=== PATIENT | female | born 1980 | race Caucasian/White ===

== ENCOUNTER 2016-08-23 09:06 | Emergency (ER) | payer OTHER ==
--- NOTE | 2016-08-23 10:24 | DIAGNOSTIC IMAGING REPORT ---
PROCEDURE: XR CHEST 1 VIEW INDICATION: SHORTNESS OF BREATH TECHNIQUE: Portable AP view 09:54 a.m. COMPARISON: None. FINDINGS: Lungs are clear. Heart and mediastinum are normal. Thorax is normal. IMPRESSION: 1. Negative chest.
--- NOTE | 2016-08-23 13:11 | ED ORDER SUMMARY ---
..... Patient: MATTI GLEZ OrderSheet [facility] VisitID: [id number] [place] [address] 36y, F Registration Date/Time: 08/23/2016 ORDER SHEET Weight: 150.5 kg (stated) Allergies: Compazine GENERAL ORDERS: Chest 1V Urgent (09:45 08/23/2016 Alicia Johnson) (Ack 9:46 TBergley) (9:55 TBergley) Culture, Strep Screen Urgent (09:45 08/23/2016 Alicia Johnson) (Ack 9:46 TBergley) (10:27 JSimbeck R.N.) CBC w Diff Urgent (:08/23/2016 Alicia Johnson) (Ack 9:46 TBergley) (10:21 JSimbeck R.N.) CMP Urgent (09:08/23/2016 Alicia Johnson) (Ack 9:46 TBergley) (10:21 JSimbeck R.N.) UA-Culture if indicated Urgent (:45 08/23/2016 Alicia Johnson) (Ack 9:46 TBergley) (12:37 JSimbeck R.N.) Urine Urgent (09:45 08/23/2016 Alicia Johnson) (Ack 9:46 TBergley) (12:37 JSimbeck R.N.) Monoscreen Urgent (09:45 08/23/2016 Alicia Johnson) (Ack 9:46 TBergley) (10:21 JSimbeck R.N.) Rapid Influenza Screen (Nasal Pharyngeal) (...) Urgent (11:42 08/23/2016 Alicia Johnson) (Ack 11:45 TBergley) (12:37 JSimbeck R.N.) MEDICATION ORDERS: IV FLUIDS: IV NS : initial bolus none -, then 1000 mL/hr for X1 (NOW) (09:44 08/23/2016 Alicia Johnson) (10:25 JSimbeck R.N.) Toradol IV 30 mg (NOW) (09:45 08/23/2016 Alicia Johnson) (10:25 Demarcus Valadez) Zofran IV 4 mg (NOW) (09:46 08/23/2016 Alicia Johnson) (10:25 Demarcus Valadez) Reglan IV 10 mg (NOW) (11:12 08/23/2016 Alicia Johnson) (11:28 Demarcus Valadez) ORDER SHEET NOTES: [Electronically signed by Yuan Miller Dr. (22:06 08/23/2016)] [Electronically signed by Bernabe Broussard R.N. (07:41 08/24/2016)] [Electronically locked/signed by Bernabe Broussard R.N. (07:41 08/24/2016)]
--- NOTE | 2016-08-23 13:11 | ED ORDER SUMMARY ---
..... Patient: MATTI GLEZ OrderSheet [facility] VisitID: [id number] [place] [address] 36y, F Registration Date/Time: 08/23/2016 ORDER SHEET Weight: 150.5 kg (stated) Allergies: Compazine GENERAL ORDERS: Chest 1V Urgent (09:45 08/23/2016 Alicia Johnson) (Ack 9:46 TBergley) (9:55 TBergley) Culture, Strep Screen Urgent (09:45 08/23/2016 Alicia Johnson) (Ack 9:46 TBergley) (10:27 JSimbeck R.N.) CBC w Diff Urgent (:08/23/2016 Alicia Johnson) (Ack 9:46 TBergley) (10:21 JSimbeck R.N.) CMP Urgent (09:08/23/2016 Alicia Johnson) (Ack 9:46 TBergley) (10:21 JSimbeck R.N.) UA-Culture if indicated Urgent (:45 08/23/2016 Alicia Johnson) (Ack 9:46 TBergley) (12:37 JSimbeck R.N.) Urine Urgent (09:45 08/23/2016 Alicia Johnson) (Ack 9:46 TBergley) (12:37 JSimbeck R.N.) Monoscreen Urgent (09:45 08/23/2016 Alicia Johnson) (Ack 9:46 TBergley) (10:21 JSimbeck R.N.) Rapid Influenza Screen (Nasal Pharyngeal) (...) Urgent (11:42 08/23/2016 Alicia Johnson) (Ack 11:45 TBergley) (12:37 JSimbeck R.N.) MEDICATION ORDERS: IV FLUIDS: IV NS : initial bolus none -, then 1000 mL/hr for X1 (NOW) (09:44 08/23/2016 Alicia Johnson) (10:25 JSimbeck R.N.) Toradol IV 30 mg (NOW) (09:45 08/23/2016 Alicia Johnson) (10:25 Demarcus Valadez) Zofran IV 4 mg (NOW) (09:46 08/23/2016 Alicia Johnson) (10:25 Demarcus Valadez) Reglan IV 10 mg (NOW) (11:12 08/23/2016 Alicia Johnson) (11:28 Demarcus Valadez) ORDER SHEET NOTES: [Electronically signed by Yuan Miller Dr. (22:06 08/23/2016)] [Electronically signed by Bernabe Broussard R.N. (07:41 08/24/2016)] [Electronically locked/signed by Bernabe Broussard R.N. (07:41 08/24/2016)]
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
--- NOTE | 2016-08-24 07:41 | ED MAR SUMMARY ---
..... Medication Administration Record [facility] [address] [place] [address] Patient: MATTI GLEZ Visit ID: [id number] 36y, F Weight: 150.5 kg Height/Length: 66 in BMI: 53.6 ALLERGIES: Compazine Start 10:17 08/23/2016 Bernabe Broussard R.N., Stop 13:33 08/23/2016 Alexa Lozano R.N. Medication Administered: IV NS (SALINE), Dose: IV Fluids over 1 hour(s), Rate: 1000 mL/hr, Dispensed: 1000 mL bag, Site: #1 left hand. Medication Ordered: IV NS : initial bolus none -, then 1000 mL/hr for X1 (NOW). Given 10:17 08/23/2016 Bernabe Broussard R.N. Medication Administered: ZOFRAN [IVP] (ONDANSETRON HCL), Dose: 4 mg IVP over 1 minute(s), Site: #1 left hand. Medication Ordered: Zofran IV 4 mg (NOW). Given 10:18 08/23/2016 Bernabe Broussard R.N. Medication Administered: TORADOL [IVP], Dose: 30 mg IVP over 1 minute(s), Site: #1 left hand. Medication Ordered: Toradol IV 30 mg (NOW). Given 11:24 08/23/2016 Bernabe Broussard R.N. Medication Administered: REGLAN [IVP] (METOCLOPRAMIDE HCL), Dose: 10 mg IVP over 2 minute(s), Site: #1 left hand. Medication Ordered: Reglan IV 10 mg (NOW).
--- NOTE | 2016-08-24 07:41 | ED MED RECONCILIATION SUMMARY ---
Patient: MATTI GLEZ Medication Reconciliation Report [facility] VisitID: [id number] [address] [place] [address] 36y, F Registration Date/Time: 08/23/2016 Weight: 150.5 kg Height/Length: 66 in. BMI: 53.6 ALLERGIES: Compazine The patient's Home Medications are listed below: CONTINUE TAKING THE FOLLOWING MEDICATIONS: Lantus Subcutaneous, unsure of dose Protonix Oral TraZODone HCl Oral The source(s) of the original Home Medication information: Not obtained. The following Medications were given to the patient in the Emergency Department: IV NS IV Fluids bolus 0, then 1000 mL/hr, administered: 08/23/2016 10:17:00 AM Zofran [IVP] IVP 4 mg, administered: 08/23/2016 10:17:00 AM Toradol [IVP] IVP 30 mg, administered: 08/23/2016 10:18:00 AM Reglan [IVP] IVP 10 mg, administered: 08/23/2016 11:24:00 AM The following Medications were prescribed to the patient: Zofran (orally disintegrating tablets) 4 mg: take 1 orally every 6 hours as needed for nausea and vomiting. Dispense ten (10). No refill. Substitution is permissible. -- Yuan Miller Dr.
--- NOTE | 2016-08-24 07:41 | ED MAR SUMMARY ---
..... Medication Administration Record [facility] [address] [place] [address] Patient: MATTI GLEZ Visit ID: [id number] 36y, F Weight: 150.5 kg Height/Length: 66 in BMI: 53.6 ALLERGIES: Compazine Start 10:17 08/23/2016 Bernabe Broussard R.N., Stop 13:33 08/23/2016 Alexa Lozano R.N. Medication Administered: IV NS (SALINE), Dose: IV Fluids over 1 hour(s), Rate: 1000 mL/hr, Dispensed: 1000 mL bag, Site: #1 left hand. Medication Ordered: IV NS : initial bolus none -, then 1000 mL/hr for X1 (NOW). Given 10:17 08/23/2016 Bernabe Broussard R.N. Medication Administered: ZOFRAN [IVP] (ONDANSETRON HCL), Dose: 4 mg IVP over 1 minute(s), Site: #1 left hand. Medication Ordered: Zofran IV 4 mg (NOW). Given 10:18 08/23/2016 Bernabe Broussard R.N. Medication Administered: TORADOL [IVP], Dose: 30 mg IVP over 1 minute(s), Site: #1 left hand. Medication Ordered: Toradol IV 30 mg (NOW). Given 11:24 08/23/2016 Bernabe Broussard R.N. Medication Administered: REGLAN [IVP] (METOCLOPRAMIDE HCL), Dose: 10 mg IVP over 2 minute(s), Site: #1 left hand. Medication Ordered: Reglan IV 10 mg (NOW).
--- NOTE | 2016-08-24 07:41 | ED DISCHARGE INSTRUCTIONS ---
Patient: MATTI GLEZ General Instructions [facility] VisitID: [id number] [place] [address] 36y, F Registration Date/Time: 08/23/2016 Acute viral syndrome INSTRUCTIONS Alternate Tylenol (Acetaminophen) or Motrin (Ibuprofen) for fever. Take according to label instructions. Drink plenty of fluids. Your Current Medications: CONTINUE TAKING THE FOLLOWING MEDICATIONS: Lantus Subcutaneous : unsure of dose. Protonix Oral. TraZODone HCl Oral. Prescription Medications: Zofran (orally disintegrating tablets) 4 mg: take 1 orally every 6 hours as needed for nausea and vomiting. Dispense ten (10). No refill. Substitution is permissible. Follow-up: Follow up with your doctor in about four days if not better. Call for an appointment. Screening today revealed the patient's blood pressure to be in the pre-hypertensive range. The patient should follow up with a primary care provider for blood pressure management. ADDITIONAL INFORMATION Viral Syndrome (Adult) A viral illness may cause a number of symptoms. The symptoms depend on the part of the body that the virus affects. If it settles in the nose, throat, and lungs, it may cause cough, sore throat, congestion, and sometimes headache. If it settles in the stomach and intestinal tract, it may cause vomiting and diarrhea. Sometimes it causes vague symptoms like "aching all over," feeling tired, loss of appetite, or fever. A viral illness usually lasts1 to 2 weeks, but sometimes it lasts longer. In some cases, a more serious infection can look like a viral syndrome in the first few days of the illness. You may need anotherexam and additional teststo know the difference.Watch for the warning signs listed below. Home care Follow these guidelines for taking care of yourself at home: If symptoms are severe, rest at home for the first 2 to 3 days. Stay away from cigarette smoke - both your smoke and the smoke from others. You may useacetaminophen or ibuprofen for fever, muscle aching, and headache, unless another medicine was prescribed for this.If you have chronic liver or kidney disease or ever had a stomach ulcer or GI bleeding, talk with your doctor before using these medicinesNo one who is younger than 18 and ill with a fever should take aspirin. It may cause severe liver damage. Your appetite may be poor, so a light diet is fine. Avoid dehydration by drinking 8 to 12 8-ounce glasses of fluids each day. This may include water; orange juice; lemonade; apple, grape, and cranberry juice; clear fruit drinks; electrolyte replacement and sports drinks; and decaffeinated teas and coffee. If you have been diagnosed with a kidney disease, ask your doctor how much and what types of fluids you should drink to prevent dehydration. If you have kidney disease, drinking too much fluid can cause it build up in the your body and be dangerous to your health. Pluw-zce-ewuvrcx remedies won't shorten the length of the illness but may be helpful forcough, sore throat; and nasal and sinus congestion. Don't use decongestants if you have high blood pressure. Follow-up care Follow up with your health care provider if you do not improve over the next week. When to seek medical care Get prompt medical attention if any of these occur: Cough with lots of colored sputum (mucus) or blood in your sputum Chest pain, shortness of breath, wheezing, or difficulty breathing Severe headache; face, neck, or ear pain Severe, constant pain in the lower right side of your belly (abdominal) Continued vomiting (cant keep liquids down) Frequent diarrhea (more than 5 times a day); blood (red or black color) or mucus in diarrhea Feeling weak, dizzy, or like you are going to faint Extreme thirst Fever of 100.4 F (38 C) oral or higher, not better with fever medication Convulsion Fever Control (Adult) A fever is a natural reaction of the body to an illness. In most cases, the temperature itself is not harmful. It actually helps the body fight infections. A fever does not need to be treated unless you feel very uncomfortable. Home Care If you feel warm, check your temperature. If you feel very uncomfortable and your temperature is at or higher than 100.4F (38C) oral, you may take acetaminophen (Tylenol) every 4 to 6 hours. If you cant take or keep down oral medicine, ask your pharmacist for Tylenol suppositories, which you can get without a prescription. If the fever does not respond to acetaminophen within 1 hour, take ibuprofen (Advil or Motrin). If this works, keep taking the ibuprofen every 6 to 8 hours. Note: If you have chronic liver or kidney disease or ever had a stomach ulcer or GI bleeding, talk with your doctor before using these medications. If either medication alone does not keep the fever down, you may alternate the two medicines every 3 to 4 hours, only if your healthcare provider has instructed you to do so. For example, take Motrin then wait 3 hours, take Tylenol then wait 3 hours, take Motrin, and so on. Follow your healthcare providers instructions exactly. Clothing: Keep clothing light because excess body heat is lost through the skin. The fever will go up if you wear extra layers or wrap in blankets. Fluids: Fever causes the body to lose water through evaporation. Drink plenty of fluids such as water, juice, clear sodas, reinaldo jenae, or lemonade. Do not use aspirin in anyone under 18 years of age who is ill with a fever. It can cause severe liver damage. Follow Up with your doctor or as advised by our staff if you do not get better after 48 hours. Get Prompt Medical Attention if any of the following occur: Fever does not get better after taking fever medication Fast or difficult breathing Earache, sinus pain, stiff or painful neck, headache, repeated diarrhea or vomiting You feel unusually irritable, drowsy, or confused A rash appears You feel weak or dizzy, or that you might faint Ondansetron Oral disintegrating tablet What is this medicine? ONDANSETRON (on DELFINA se klaus) is used to treat nausea and vomiting caused by chemotherapy. It is also used to prevent or treat nausea and vomiting after surgery. How should I use this medicine? These tablets are made to dissolve in the mouth. Do not try to push the tablet through the foil backing. With dry hands, peel away the foil backing and gently remove the tablet. Place the tablet in the mouth and allow it to dissolve, then swallow. While you may take these tablets with water, it is not necessary to do so. Talk to your aircraft structural fitter regarding the use of this medicine in children. Special care may be needed. What side effects may I notice from receiving this medicine? Side effects that you should report to your doctor or health residential child care counselor as soon as possible: allergic reactions like skin rash, itching or hives, swelling of the face, lips, or tongue breathing problems dizziness fast or irregular heartbeat feeling faint or lightheaded, falls fever and chills swelling of the hands and feet tightness in the chest Side effects that usually do not require medical attention (report to your doctor or health residential child care counselor if they continue or are bothersome): constipation or diarrhea headache What may interact with this medicine? Do not take this medicine with any of the following medications: -apomorphine -cisapride -dofetilide -dronedarone -pimozide -thioridazine -ziprasidone This medicine may also interact with the following medications: -carbamazepine -phenytoin -rifampicin -tramadol -other medicines that prolong the QT interval (cause an abnormal heart rhythm) What if I miss a dose? If you miss a dose, take it as soon as you can. If it is almost time for your next dose, take only that dose. Do not take double or extra doses. Where should I keep my medicine? Keep out of the reach of children. Store between 2 and 30 degrees C (36 and 86 degrees F). Throw away any unused medicine after the expiration date. What should I tell my health care provider before I take this medicine? They need to know if you have any of these conditions: heart disease history of irregular heartbeat liver disease low levels of magnesium or potassium in the blood an unusual or allergic reaction to ondansetron, granisetron, other medicines, foods, dyes, or preservatives or trying to get breast-feeding What should I watch for while using this medicine? Check with your doctor or health residential child care counselor as soon as you can if you have any sign of an allergic reaction. You have been given the following additional information: Viral Syndrome (Adult) Fever Control (Adult) Ondansetron Oral disintegrating tablet (Electronically signed by Yuan Miller Dr. 08/23/2016 22:06)
--- NOTE | 2016-08-24 07:41 | ED MED RECONCILIATION SUMMARY ---
Patient: MATTI GLEZ Medication Reconciliation Report [facility] VisitID: [id number] [address] [place] [address] 36y, F Registration Date/Time: 08/23/2016 Weight: 150.5 kg Height/Length: 66 in. BMI: 53.6 ALLERGIES: Compazine The patient's Home Medications are listed below: CONTINUE TAKING THE FOLLOWING MEDICATIONS: Lantus Subcutaneous, unsure of dose Protonix Oral TraZODone HCl Oral The source(s) of the original Home Medication information: Not obtained. The following Medications were given to the patient in the Emergency Department: IV NS IV Fluids bolus 0, then 1000 mL/hr, administered: 08/23/2016 10:17:00 AM Zofran [IVP] IVP 4 mg, administered: 08/23/2016 10:17:00 AM Toradol [IVP] IVP 30 mg, administered: 08/23/2016 10:18:00 AM Reglan [IVP] IVP 10 mg, administered: 08/23/2016 11:24:00 AM The following Medications were prescribed to the patient: Zofran (orally disintegrating tablets) 4 mg: take 1 orally every 6 hours as needed for nausea and vomiting. Dispense ten (10). No refill. Substitution is permissible. -- Yuan Miller Dr.
== END 2016-08-23 13:32 | disposition home or self-care (01) ==
LOC: ED SRH 09:06
DX: B34.9 Viral infection, unspecified (principal); R59.1 Generalized enlarged lymph nodes; E11.9 Type 2 diabetes mellitus without complications; F17.210 Nicotine dependence, cigarettes, uncomplicated; Z79.51 Long term (current) use of inhaled steroids
CPT/HCPCS: 90004; 90100; 90154; 90159; 91400; 93070; 95059; 98370

== ENCOUNTER 2016-09-20 20:06 | Emergency (ER) | payer OTHER ==
--- NOTE | 2016-09-20 22:08 | DIAGNOSTIC IMAGING REPORT ---
PROCEDURE: XR CHEST 1 VIEW INDICATION: SHORTNESS OF BREATH TECHNIQUE: Portable AP view 09:35 p.m. COMPARISON: Chest 08/23/2016 FINDINGS: Lungs are clear. Heart and mediastinum are normal. Thorax is normal. IMPRESSION: 1. Negative chest.
--- NOTE | 2016-09-20 23:21 | ED ORDER SUMMARY ---
..... Patient: MATTI GLEZ OrderSheet [facility] VisitID: [id number] [address] [place] [address] 36y, F Registration Date/Time: 09/20/2016 ORDER SHEET Weight: 150.5 kg (stated) Allergies: Compazine, Adhesives on tapes GENERAL ORDERS: CMP Urgent (20:54 09/20/2016 Gigi R.N. verbal order read back to Haydee GRAHAM) (Ack 20:55 CHagerty ER Seismology Teacher) (23:14 CHagerty ER Seismology Teacher) UA-Culture if indicated Urgent (20:54 09/20/2016 Gigi R.N. verbal order read back to Haydee GRAHAM) (Ack 20:55 CHagerty ER Seismology Teacher) (1:21 JRomanelli R.N.) Pulse oximeter (20:54 09/20/2016 Gigi R.N. verbal order read back to Haydee GRAHAM) (Ack 21:48 CHagerty ER Seismology Teacher) (1:21 JRomanelli R.N.) (Cancelled: Duplicate Order1:22 JRomanelli R.N.) Urine Urgent (20:54 09/20/2016 Lissettelli R.N. verbal order read back to Haydee GRAHAM) (Ack 20:55 CHagerty ER Seismology Teacher) (1:21 JRomanelli R.N.) Chest 1V Urgent (21:25 09/20/2016 Haydee GRAHAM) (Ack 21:48 CHagerty ER Seismology Teacher) (21:56 MCampbell) Ballet Company Member (Continuous) (21:26 09/20/2016 Haydee GRAHAM) (Ack 21:48 CHagerty ER Seismology Teacher) (1:21 omanelli R.N.) CBC w Diff Urgent (21:09/20/2016 Haydee GRAHAM) (Ack 21:48 CHagerty ER Seismology Teacher) (23:14 CHagerty ER Seismology Teacher) Amylase Urgent (21:09/20/2016 Haydee GRAHAM) (Ack 21:48 CHagerty ER Seismology Teacher) (23:14 CHagerty ER Seismology Teacher) Lipase Urgent (21:09/20/2016 Haydee GRAHMA) (Ack 21:48 CHagerty ER Seismology Teacher) (23:14 CHagerty ER Seismology Teacher) CPK Urgent (21:26 09/20/2016 Haydee GRAHAM) (Ack 21:48 CHagerty ER Seismology Teacher) (23:14 CHagerty ER Seismology Teacher) Troponin-I Urgent (:09/20/2016 Haydee GRAHAM) (Ack 21:48 CHagerty ER Seismology Teacher) (23:14 CHagerty ER Seismology Teacher) D-Dimer Urgent (21:09/20/2016 Haydee GRAHAM) (Ack 21:48 CHagerty ER Seismology Teacher) (23:14 CHagerty ER Seismology Teacher) BNP Urgent (:09/20/2016 Haydee GRAHAM) (Ack 21:48 CHagerty ER Seismology Teacher) (23:14 CHagerty ER Seismology Teacher) Pulse oximeter (:09/20/2016 Haydee GRAHAM) (Ack 21:48 CHagerty ER Seismology Teacher) (1:21 Gigi R.N.) EKG - ER Stat (:09/20/2016 Haydee GRAHAM) (Ack 21:48 CHagerty ER Seismology Teacher) (23:13 CHagerty ER Seismology Teacher) MEDICATION ORDERS: IV FLUIDS: IV Saline Lock (20:53 09/20/2016 Gigi Valadez verbal order read back to Haydee GRAHAM) (21:12 Eddie R.NMajor) ORDER SHEET NOTES: [Electronically signed by Hu Patino R.N. (:09/21/2016)] [Electronically signed by Jose R Castillo MD (03:29 09/21/2016)] [Electronically locked/signed by Hu Patino R.N. (09/21/2016)]
--- NOTE | 2016-09-20 23:21 | ED ORDER SUMMARY ---
..... Patient: MATTI GLEZ OrderSheet [facility] VisitID: [id number] [address] [place] [address] 36y, F Registration Date/Time: 09/20/2016 ORDER SHEET Weight: 150.5 kg (stated) Allergies: Compazine, Adhesives on tapes GENERAL ORDERS: CMP Urgent (20:54 09/20/2016 Gigi R.N. verbal order read back to Haydee GRAHAM) (Ack 20:55 CHagerty ER Wire Straightening Machine Operator) (23:14 CHagerty ER Wire Straightening Machine Operator) UA-Culture if indicated Urgent (20:54 09/20/2016 Gigi R.N. verbal order read back to Haydee GRAHAM) (Ack 20:55 CHagerty ER Wire Straightening Machine Operator) (1:21 JRomanelli R.N.) Pulse oximeter (20:54 09/20/2016 Gigi R.N. verbal order read back to Haydee GRAHAM) (Ack 21:48 CHagerty ER Wire Straightening Machine Operator) (1:21 JRomanelli R.N.) (Cancelled: Duplicate Order1:22 JRomanelli R.N.) Urine Urgent (20:54 09/20/2016 Lissettelli R.N. verbal order read back to Haydee GRAHAM) (Ack 20:55 CHagerty ER Wire Straightening Machine Operator) (1:21 JRomanelli R.N.) Chest 1V Urgent (21:25 09/20/2016 Haydee GRAHAM) (Ack 21:48 CHagerty ER Wire Straightening Machine Operator) (21:56 MCampbell) Field Engineer (Continuous) (21:26 09/20/2016 Haydee GRAHAM) (Ack 21:48 CHagerty ER Wire Straightening Machine Operator) (1:21 omanelli R.N.) CBC w Diff Urgent (21:09/20/2016 Haydee GRAHAM) (Ack 21:48 CHagerty ER Wire Straightening Machine Operator) (23:14 CHagerty ER Wire Straightening Machine Operator) Amylase Urgent (21:09/20/2016 Haydee GRAHAM) (Ack 21:48 CHagerty ER Wire Straightening Machine Operator) (23:14 CHagerty ER Wire Straightening Machine Operator) Lipase Urgent (21:09/20/2016 Haydee GRAHAM) (Ack 21:48 CHagerty ER Wire Straightening Machine Operator) (23:14 CHagerty ER Wire Straightening Machine Operator) CPK Urgent (21:26 09/20/2016 Haydee GRAHAM) (Ack 21:48 CHagerty ER Wire Straightening Machine Operator) (23:14 CHagerty ER Wire Straightening Machine Operator) Troponin-I Urgent (:09/20/2016 Haydee GRAHAM) (Ack 21:48 CHagerty ER Wire Straightening Machine Operator) (23:14 CHagerty ER Wire Straightening Machine Operator) D-Dimer Urgent (21:09/20/2016 Haydee GRAHAM) (Ack 21:48 CHagerty ER Wire Straightening Machine Operator) (23:14 CHagerty ER Wire Straightening Machine Operator) BNP Urgent (:09/20/2016 Haydee GRAHAM) (Ack 21:48 CHagerty ER Wire Straightening Machine Operator) (23:14 CHagerty ER Wire Straightening Machine Operator) Pulse oximeter (:09/20/2016 Haydee GRAHAM) (Ack 21:48 CHagerty ER Wire Straightening Machine Operator) (1:21 Gigi R.N.) EKG - ER Stat (:09/20/2016 Haydee GRAHAM) (Ack 21:48 CHagerty ER Wire Straightening Machine Operator) (23:13 CHagerty ER Wire Straightening Machine Operator) MEDICATION ORDERS: IV FLUIDS: IV Saline Lock (20:53 09/20/2016 Gigi Valadez verbal order read back to Haydee GRAHAM) (21:12 Eddie R.NMajor) ORDER SHEET NOTES: [Electronically signed by Hu Patino R.N. (:09/21/2016)] [Electronically signed by Jose R Castillo MD (03:29 09/21/2016)] [Electronically locked/signed by Hu Patino R.N. (09/21/2016)]
--- NOTE | 2016-09-20 23:21 | ED NURSING NOTES ---
Clinical Report - Nurses [facility] [address] [place] [address] 09/20/2016 20:06 [id number] Triage time 20:10 Sep 20 2016. Acuity: LEVEL 3. Chief Complaint: RIGHT LOWER EXTREMITY NUMBNESS. Location of symptoms- (toes). LEFT LOWER EXTREMITY NUMBNESS. Location of symptoms- (toes). Alert. LILLY COMA SCORE: Lilly Coma Scale: 15- eyes open spontaneously (4); best verbal response- oriented x 4 (5); best motor response- obeys commands (6). --21:24 Hu Patino R.N. 20:13 09/20/16. BP: 136/67. HR: 84. RR: 20. O2 saturation: 97% on room air. Temp: 98 F. Pain level now: 12/22. Additional comments: Bilateral Foot pain. --21:24 Hu Patino R.N. Weight: 150.5 kg stated. Height/Length: 66 inches Per Patient. BMI: 53.6. --20:17 Hu Patino R.N. Medications Lantus Subcutaneous 55 Units, 2x a day (unsure of dose). Protonix Oral 40 mg, daily. TraZODone HCl Oral 50 mg, at bedtime. --20:20 Hu Patino R.N. FLUoxetine HCl Oral 100mg, 2x a day. --20:20 Hu Patino R.N. Allergies Compazine. (migraines) --20:20 Hu Patino R.N. Adhesives on tapes. --20:22 Hu Patino R.N. History Arrived by private vehicle. Historian: patient. Accompanied by family. Primary physician (boyfriend). ( Bilateral swelling of the feet to the knees. Pt states that it is starting to hurt her feet when she ambulates.). No injury occurred. This occurred (about 2 days ago). It is described as radiating to the right lower extremity and knee and left lower extremity and knee. She has had swelling. Treatment FREE LANCE MODEL: Took ibuprofen. (elevating lower extrem's). PAST MEDICAL HX: Tetanus status: unknown. Immunizations: status is unknown. Last normal menstrual period was 4 weeks ago. Denies current . SOCIAL HX: Former smoker, end date 2009. No alcohol use or drug use. No infectious disease exposure. ABUSE ASSESSMENT: No report of abuse. FALL RISK ASSESSMENT: Fall risk assessment completed. No fall risk identified. NUTRITIONAL RISK ASSESSMENT: The nutritional risk assessment revealed no deficiencies. FUNCTIONAL ASSESSMENT: Functional assessment: no impairments noted. LEARNING NEEDS ASSESSMENT: The learning needs assessment revealed no barriers. SKIN INTEGRITY ASSESSMENT: Skin integrity risk assessment completed. No skin integrity risk identified. --21:24 Hu Patino R.N. PROBLEMS: Viral Disease. Irritable Bowel Syndrome. Hemiplegic migraines. Gallstone(s). PTSD. Head Injury. Peptic Ulcer Disease. Diabetes Mellitus. Obesity. Hyperglycemia. Pedal Edema. Gastroesophageal Reflux Disease. Gastroesophageal Reflux. Depression. Cellulitis. Facial Cellulitis. Abnormal Liver Function Test. --20:26 Hu Patino R.N. ADDITIONAL SURGERIES: Appendectomy. Cholecystectomy. . Ortho procedure. --20:26 Hu Patino R.N. Interventions ID band on patient. To treatment room. --21:24 Hu Patino R.N. PHYSICAL ASSESSMENT Ambulatory to room. GENERAL / NEURO / PSYCH: Oriented X 4. Alert. EXTREMITIES: Bilateral 2+ edema of the lower extremities involving both feet and both ankles. Extremity pulses are within normal limits. Right ankle: swelling. Left ankle: swelling. SKIN: Skin intact. Skin is warm and dry. --20:27 Hu Patino R.N. NURSING PROGRESS NOTES Reassurance given to the patient and patient's friends. Patient identifiers checked. Call light placed in reach. Side rails up x 1. Bed placed in lowest position. Brakes of bed on. Patient ready for evaluation- chart flagged and ED physician notified. --20:28 Hu Patino R.N. 20:50 09/20/16. Point of care testing: performed by nurse. Glucose: 293. --20:55 Hu Patino R.N. 21:12 09/20/2016 Site #1 started via IV in the right hand with an 22g angiocath, with aseptic technique; one attempt. Blood drawn: rainbow set. Labeled in the presence of the patient and sent to the lab. Saline lock flushed with saline. --21:12 Tramaine Betancur R.N. 22:08 09/20/16. --22:08 Josie Jimenes 22:07 09/20/16. BP: 124/82. HR: 86. RR: 16 (regular). --22:08 Josie Jimenes 21:43. ( EKG Performed by tech shown to Phys). --22:20 Josie Jimenes 23:45 09/20/2016 Site #1 removed upon discharge. Catheter intact. Manual pressure, pressure dressing and bandaid applied. --01:23 Hu Patino R.N. DISPOSITION / DISCHARGE 23:45 09/20/16. BP: 118/74. HR: 94. RR: 16. O2 saturation: 97% on room air. Temp: 98.5 F (oral). Pain level now: 08/24. Additional comments: fOOT PAIN. --01:19 Hu Patino R.N. Departure time: 2350. --01:19 Hu Patino R.N. 23:50. Condition at departure: unchanged. No learning barriers present. Discharge instructions provided and reviewed with the patient. Reviewed medication(s) (prescription given to pt). Reviewed referral to family practice for followup. Patient verbalized understanding. Written instructions provided in Yi. The patient was discharged by the physician. She was discharged home and accompanied by wholesale representative. She left the Emergency Department ambulatory and via private vehicle. Staff Educator driving. FALL RISK ASSESSMENT: Fall risk assessment completed. No fall risk identified. --01:20 Hu Patino R.N. Locked/Released at 09/21/2016 1:24 by Hu Patino R.N.
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
--- NOTE | 2016-09-20 23:21 | ED NURSING NOTES ---
Clinical Report - Nurses [facility] [address] [place] [address] 09/20/2016 20:06 [id number] Triage time 20:10 Sep 20 2016. Acuity: LEVEL 3. Chief Complaint: RIGHT LOWER EXTREMITY NUMBNESS. Location of symptoms- (toes). LEFT LOWER EXTREMITY NUMBNESS. Location of symptoms- (toes). Alert. LILLY COMA SCORE: Lilly Coma Scale: 15- eyes open spontaneously (4); best verbal response- oriented x 4 (5); best motor response- obeys commands (6). --21:24 Hu Patino R.N. 20:13 09/20/16. BP: 136/67. HR: 84. RR: 20. O2 saturation: 97% on room air. Temp: 98 F. Pain level now: 12/22. Additional comments: Bilateral Foot pain. --21:24 Hu Patino R.N. Weight: 150.5 kg stated. Height/Length: 66 inches Per Patient. BMI: 53.6. --20:17 Hu Patino R.N. Medications Lantus Subcutaneous 55 Units, 2x a day (unsure of dose). Protonix Oral 40 mg, daily. TraZODone HCl Oral 50 mg, at bedtime. --20:20 Hu Patino R.N. FLUoxetine HCl Oral 100mg, 2x a day. --20:20 Hu Patino R.N. Allergies Compazine. (migraines) --20:20 Hu Patino R.N. Adhesives on tapes. --20:22 Hu Patino R.N. History Arrived by private vehicle. Historian: patient. Accompanied by family. Primary physician (boyfriend). ( Bilateral swelling of the feet to the knees. Pt states that it is starting to hurt her feet when she ambulates.). No injury occurred. This occurred (about 2 days ago). It is described as radiating to the right lower extremity and knee and left lower extremity and knee. She has had swelling. 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 (elevating lower extrem's). PAST MEDICAL HX: Tetanus status: unknown. Immunizations: status is unknown. Last normal menstrual period was 4 weeks ago. Denies current . SOCIAL HX: Former smoker, end date 2009. No alcohol use or drug use. No infectious disease exposure. ABUSE ASSESSMENT: No report of abuse. FALL RISK ASSESSMENT: Fall risk assessment completed. No fall risk identified. NUTRITIONAL RISK ASSESSMENT: The nutritional risk assessment revealed no deficiencies. FUNCTIONAL ASSESSMENT: Functional assessment: no impairments noted. LEARNING NEEDS ASSESSMENT: The learning needs assessment revealed no barriers. SKIN INTEGRITY ASSESSMENT: Skin integrity risk assessment completed. No skin integrity risk identified. --21:24 Hu Patino R.N. PROBLEMS: Viral Disease. Irritable Bowel Syndrome. Hemiplegic migraines. Gallstone(s). PTSD. Head Injury. Peptic Ulcer Disease. Diabetes Mellitus. Obesity. Hyperglycemia. Pedal Edema. Gastroesophageal Reflux Disease. Gastroesophageal Reflux. Depression. Cellulitis. Facial Cellulitis. Abnormal Liver Function Test. --20:26 Hu Patino R.N. ADDITIONAL SURGERIES: Appendectomy. Cholecystectomy. . Ortho procedure. --20:26 Hu Patino R.N. Interventions ID band on patient. To treatment room. --21:24 Hu Patino R.N. PHYSICAL ASSESSMENT Ambulatory to room. GENERAL / NEURO / PSYCH: Oriented X 4. Alert. EXTREMITIES: Bilateral 2+ edema of the lower extremities involving both feet and both ankles. Extremity pulses are within normal limits. Right ankle: swelling. Left ankle: swelling. SKIN: Skin intact. Skin is warm and dry. --20:27 Hu Patino R.N. NURSING PROGRESS NOTES Reassurance given to the patient and patient's friends. Patient identifiers checked. Call light placed in reach. Side rails up x 1. Bed placed in lowest position. Brakes of bed on. Patient ready for evaluation- chart flagged and ED physician notified. --20:28 Hu Patino R.N. 20:50 09/20/16. Point of care testing: performed by nurse. Glucose: 293. --20:55 Hu Patino R.N. 21:12 09/20/2016 Site #1 started via IV in the right hand with an 22g angiocath, with aseptic technique; one attempt. Blood drawn: rainbow set. Labeled in the presence of the patient and sent to the lab. Saline lock flushed with saline. --21:12 Tramaine Betancur R.N. 22:08 09/20/16. --22:08 Josie Jimenes 22:07 09/20/16. BP: 124/82. HR: 86. RR: 16 (regular). --22:08 Josie Jimenes 21:43. ( EKG Performed by tech shown to Phys). --22:20 Josie Jimenes 23:45 09/20/2016 Site #1 removed upon discharge. Catheter intact. Manual pressure, pressure dressing and bandaid applied. --01:23 Hu Patino R.N. DISPOSITION / DISCHARGE 23:45 09/20/16. BP: 118/74. HR: 94. RR: 16. O2 saturation: 97% on room air. Temp: 98.5 F (oral). Pain level now: 08/24. Additional comments: fOOT PAIN. --01:19 Hu Patino R.N. Departure time: 2350. --01:19 Hu Patino R.N. 23:50. Condition at departure: unchanged. No learning barriers present. Discharge instructions provided and reviewed with the patient. Reviewed medication(s) (prescription given to pt). Reviewed referral to family practice for followup. Patient verbalized understanding. Written instructions provided in Kazakh. The patient was discharged by the physician. She was discharged home and accompanied by warhead maintenance specialist. She left the Emergency Department ambulatory and via private vehicle. Bulb Filler driving. FALL RISK ASSESSMENT: Fall risk assessment completed. No fall risk identified. --01:20 Hu Patino R.N. Locked/Released at 09/21/2016 1:24 by Hu Patino R.N.
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
--- NOTE | 2016-09-21 03:29 | ED MAR SUMMARY ---
..... Medication Administration Record [facility] [address] [place], [place] [id number] Patient: MATTI GLEZ Visit ID: [id number] 36y, F Weight: 150.5 kg Height/Length: 66 in BMI: 53.6 ALLERGIES: Adhesives on tapes, Compazine
--- NOTE | 2016-09-21 03:29 | ED MED RECONCILIATION SUMMARY ---
Patient: MATTI GLEZ Medication Reconciliation Report [facility] VisitID: [id number] [address] [place] [address] 36y, F Registration Date/Time: 09/20/2016 Weight: 150.5 kg Height/Length: 66 in. BMI: 53.6 ALLERGIES: Adhesives on tapes, Compazine The patient's Home Medications are listed below: CONTINUE TAKING THE FOLLOWING MEDICATIONS: FLUoxetine HCl Oral 100mg, 2x a day Lantus Subcutaneous 55 Units, 2x a day, unsure of dose Protonix Oral 40 mg, daily TraZODone HCl Oral 50 mg, at bedtime The source(s) of the original Home Medication information: Not obtained. The following Medications were given to the patient in the Emergency Department: None. The following Medications were prescribed to the patient: Lasix 20 mg: Take 1 orally every 24 hours. Dispense fifteen (15). No refills. Substitution is permissible. -- Jose R Castillo MD
--- NOTE | 2016-09-21 03:29 | ED MED RECONCILIATION SUMMARY ---
Patient: MATTI GLEZ Medication Reconciliation Report [facility] VisitID: [id number] [address] [place] [address] 36y, F Registration Date/Time: 09/20/2016 Weight: 150.5 kg Height/Length: 66 in. BMI: 53.6 ALLERGIES: Adhesives on tapes, Compazine The patient's Home Medications are listed below: CONTINUE TAKING THE FOLLOWING MEDICATIONS: FLUoxetine HCl Oral 100mg, 2x a day Lantus Subcutaneous 55 Units, 2x a day, unsure of dose Protonix Oral 40 mg, daily TraZODone HCl Oral 50 mg, at bedtime The source(s) of the original Home Medication information: Not obtained. The following Medications were given to the patient in the Emergency Department: None. The following Medications were prescribed to the patient: Lasix 20 mg: Take 1 orally every 24 hours. Dispense fifteen (15). No refills. Substitution is permissible. -- Jose R Castillo MD
--- NOTE | 2016-09-21 03:29 | ED MAR SUMMARY ---
..... Medication Administration Record [facility] [address] [place], [place] [id number] Patient: MATTI GLEZ Visit ID: [id number] 36y, F Weight: 150.5 kg Height/Length: 66 in BMI: 53.6 ALLERGIES: Adhesives on tapes, Compazine
--- NOTE | 2016-09-21 03:29 | ED DISCHARGE INSTRUCTIONS ---
Patient: MATTI GLEZ General Instructions [facility] VisitID: [id number] [address] [place] [address] 36y, F Registration Date/Time: 09/20/2016 Diabetes with hyperglycemia. Bilateral pedal edema. INSTRUCTIONS Elevate affected areas above chest level. Warnings: Further evaluation is necessary. GENERAL WARNINGS: Return or contact your physician immediately if your condition worsens or changes unexpectedly, if not improving as expected, or if other problems arise. Your Current Medications: CONTINUE TAKING THE FOLLOWING MEDICATIONS: FLUoxetine HCl Oral : 100mg 2x a day. Lantus Subcutaneous : 55 Units 2x a day, unsure of dose. Protonix Oral : 40 mg daily. TraZODone HCl Oral : 50 mg at bedtime. Prescription Medications: Lasix 20 mg: Take 1 orally every 24 hours. Dispense fifteen (15). No refills. Substitution is permissible. Follow-up: Follow up with your doctor in seven days. Call for the next available appointment. Understanding of the discharge instructions verbalized by patient. ADDITIONAL INFORMATION Diabetes with High Blood Sugar You have been treated for high blood sugar (hyperglycemia). This may be becauseof an infection or other illness;eating too many sweets or starches ; not taking enough insulin. Home care High blood sugar may cause symptoms that you can learn to recognize, such as these: If you feel like your blood sugar may be too high, measure it using a blood or urine test. If it is above your usual range, use the "sliding scale"rRegular insulin dose your doctor gave you to correct this. If no "sliding scale" orders were given, contact your doctor for further advice. If your blood sugar is over 300, and you can't reach your doctor, go to the hospital emergency room. Monitor and write down your blood sugars - and insulin dose, if you take insulin - atleast twice a day. Do this before breakfast and before dinner. Do this for the next 3 to 5 days. Follow-up care Follow up with your health care provderduring the next week to review your blood sugar records. You will find out if you need to adjust your dose of insulin or other medicine for blood sugar. When to seek medical care Get prompt medical attention if either of these occur: High blood sugar.Symptoms are frequent urination, feeling dizzy, thirst, headache, nausea or vomiting, abdominal pain, and drowsiness or loss of consciousness. Low blood sugar. Symptoms are fatigue, headache, shakes, excess sweating, hunger, anxiety, reduced vision, drowsiness, weakness, confusion or loss of consciousness, and seizure. Diabetes (General Information) Cells of the body need glucose (sugar) for fuel. Insulin is the hormone in the body that lets glucose move from the blood into the cells. Diabetes is a chronic health condition where the body is not able to produce enough insulin, or does not respond well to its own insulin. Because the glucose in the blood cannot get into the cells, it builds up in the blood causing high blood sugar (hyperglycemia). Your actual blood sugar level is a result of the balance between several factors. These include what kind of food you eat and how much of it you eat, how much exercise you get, and the amount of insulin present in your body. Eating too much of the wrong kinds of food or not taking diabetes medicine on time can cause high blood sugar. Infections can cause high blood sugar even if you are taking medicines correctly. Missing meals, not eating enough food, or taking too much diabetes medicine can lead to low blood sugar. Untreated over long periods of time, diabetes can cause serious problems such as heart disease, stroke, kidney failure, blindness, nerve pain or loss of feeling in the legs and feet, and gangrene of the feet. With good treatment keeping your blood sugar under control, you can prevent or delay the complications of diabetes. Normal blood sugar levels are 70-130 one to two hours before a meal and not more than 180 two hours after a meal. Home Care: Follow your prescribed diabetic diet and take insulin or oral diabetic medicine exactly as ordered. Monitor blood sugars as advised. Keep a log of your results. This will help your doctor adjust your medicines to keep your blood sugar under control. Try to achieve your ideal weight. Proper diet and exercise can reduce or eliminate the need to take diabetes medicine. Avoid tobacco smoking, which worsens the effect of diabetes on your circulation. The risk of a heart attack in a diabetic is 15 times more likely if you smoke. Pay attention to good foot care. If you have lost feeling in your feet you may not notice an injury or infection. Check your feet and between your toes at least once a week. Wear a medical alert bracelet or carry a card in your wallet explaining that you are diabetic. In the event that you become very ill and are unable to give this information, it will help medical personnel provide proper care. If you become sick with a cold, the flu, or an infection (viral or bacterial), please do the following: Review your diabetes sick plan and contact your physician as instructed. You may have been advised to call the doctor immediately if: Your blood sugar is above 240 while taking your diabetes medication Your urine ketone levels are above normal or showing high levels of ketones You have been vomiting more than 6 hours You experience difficulty to trouble breathing You develop a high fever or you have had a fever for a couple of days and you aren't getting better You become light-headed and more sleepy than usual Keep taking your oral diabetes medicine (pills) even if you have been vomiting and feeling sick. Contact your doctor immediately for advice because you may need insulin to lower your blood sugar until you recover from your illness. Keep taking your insulin, even if you have been vomiting and feeling sick. Call your doctor immediately and ask if a temporary adjustment of your insulin dose is needed based on your blood glucose (sugar) results. Check your blood sugar every 2 to 4 hours, or at least 4 times a day. Check your keytones often. If you are vomiting and having diarrhea, monitor them more frequently. Don't skip meals. Try to eat small meals on a regular schedule, even if you do not have an appetite. Drink water or other calorie-free, non-caffeinated liquids to stay hydrated. If you are nauseated or vomiting, drink small amounts (sips, a teaspoon) every 5 minutes. To prevent dehydration, try to drink a cup or 8 ounces of fluids every hour while you are awake. Always carry a source of fast-acting sugar with you in case you get symptoms of low blood sugar (below 70). At the first sign of low blood sugar, eat or drink 15 to 20 grams of fast-acting sugar to raise your blood sugar. Examples include: 3 to 4 glucose tablets (found at most drugstores) 4 ounces (1/2 cup) of regular (not diet) softdrinks 4 ounces (1/2 cup) of any fruit juice 8 ounces (1 cup) of milk 5 to 6 pieces of hard candy 1 tablespoon of honey Check your blood sugar 15 minutes after treating yourself. If it is still low (below 70), take another 15 to 20 grams of fast-acting sugar. Test again in 15 minutes. If it returns to normal (70 or above), eat a snack or meal to keep your blood sugar in a safe range. If it remains low, call your doctor or go to an emergency room. Follow Up with your doctor as advised by our staff. For more information, contact the [employer]. www.diabetes.org or [phone]. Get Prompt Medical Attention if any of the following occur: HIGH BLOOD SUGAR: frequent urination, dizziness, drowsiness, thirst, headache, nausea or vomiting, abdominal pain, vision changes, fast breathing, confusion or loss of consciousness LOW BLOOD SUGAR: fatigue, headache, shakes, excess sweating, hunger, feeling anxious or restless, vision changes, drowsiness, weakness, confusion or loss of consciousness Chest pain or shortness of breath Dizziness or fainting Weakness of an arm or leg or one side of the face Trouble with speech or vision Leg Swelling [Bilateral] Swelling of the feet, ankles and legs is called "Edema." It is due to excess fluid collecting in the tissues. Because of gravity, excess fluid in the body settles in the lowest part. This is why the legs and feet are most affected. Some of the causes for edema include: Disease of the heart (congestive heart failure or "CHF") Prolonged standing or sitting (with the legs in the down position) Infection of the feet or legs Venous Insufficiency (congestion of blood in the veins of the legs) Varicose veins (dilated veins of the lower leg) Garters, or clothing that constricts your legs. (These will cause venous congestion by restricting blood flow.) Some medicines (hormones such as control pills; some blood pressure medicines, such as calcium channel blockers; steroids; some antidepressants such as MAO inhibitors and tricyclics.) Menstrual periods with fluid retention Renal insufficiency (a form of kidney disease) Liver failure (Some swelling is normal, but a sudden increase in leg swelling or weight gain can be a sign of a dangerous complication of ). Medical treatment will depend on the cause of your swelling. Diuretics (water pills) may be prescribed to remove excess fluid. Home Care: Do not wear garments that constrict your legs (such as garters). Elevate your legs while lying or sitting. If infection, injury or recent surgery is the cause for your swelling, stay off your legs as much as possible until symptoms improve. If your doctor says that your leg swelling is caused by venous insufficiency or varicose veins, do not sit or pairer substandard one place for long periods of time. Take breaks and walk about every few hours. Brisk walking is a good exercise and helps circulate the congested blood from your leg. Talk to your doctor about the use of support stockings to prevent daytime leg swelling. If your doctor says that heart disease is the cause of your leg swelling, follow a low-salt diet to prevent excess fluid retention. Follow Up with your doctor or as advised by our staff. Get Prompt Medical Attention if any of the following occur: New or worsening shortness of breath or chest pain Increasing swelling in both legs or ankles Swelling of the abdomen Redness, warmth or swelling in one leg Fever of 100.4F (38C) or higher, or as directed by your healthcare provider Yellow color to the skin or eyes Rapid, unexplained weight gain Furosemide Oral tablet What is this medicine? FUROSEMIDE (fyoor [place] se mide) is a diuretic. It helps you make more urine and to lose salt and excess water from your body. This medicine is used to treat high blood pressure, and edema or swelling from heart, kidney, or liver disease. How should I use this medicine? Take this medicine by mouth with a glass of water. Follow the directions on the prescription label. You may take this medicine with or without food. If it upsets your stomach, take it with food or milk. Do not take your medicine more often than directed. Remember that you will need to pass more urine after taking this medicine. Do not take your medicine at a time of day that will cause you problems. Do not take at bedtime. Talk to your head men's golf coach regarding the use of this medicine in children. While this drug may be prescribed for selected conditions, precautions do apply. What side effects may I notice from receiving this medicine? Side effects that you should report to your doctor or health healthcare facility administrator as soon as possible: blood in urine or stools dry mouth fever or chills hearing loss or ringing in the ears irregular heartbeat muscle pain or weakness, cramps skin rash stomach upset, pain, or nausea tingling or numbness in the hands or feet unusually weak or tired vomiting or diarrhea yellowing of the eyes or skin Side effects that usually do not require medical attention (report to your doctor or health healthcare facility administrator if they continue or are bothersome): headache loss of appetite unusual bleeding or bruising What may interact with this medicine? aspirin and aspirin-like medicines certain antibiotics chloral hydrate cisplatin cyclosporine digoxin diuretics laxatives lithium medicines for blood pressure medicines that relax muscles for surgery methotrexate NSAIDs, medicines for pain and inflammation like ibuprofen, naproxen, or indomethacin phenytoin steroid medicines like prednisone or cortisone sucralfate What if I miss a dose? If you miss a dose, take it as soon as you can. If it is almost time for your next dose, take only that dose. Do not take double or extra doses. Where should I keep my medicine? Keep out of the reach of children. Store at room temperature between 15 and 30 degrees C (59 and 86 degrees F). Protect from light. Throw away any unused medicine after the expiration date. What should I tell my health care provider before I take this medicine? They need to know if you have any of these conditions: abnormal blood electrolytes diarrhea or vomiting gout heart disease kidney disease, small amounts of urine, or difficulty passing urine liver disease an unusual or allergic reaction to furosemide, sulfa drugs, other medicines, foods, dyes, or preservatives or trying to get breast-feeding What should I watch for while using this medicine? Visit your doctor or health healthcare facility administrator for regular checks on your progress. Check your blood pressure regularly. Ask your doctor or health healthcare facility administrator what your blood pressure should be, and when you should contact him or her. If you are a diabetic, check your blood sugar as directed. You may need to be on a special diet while taking this medicine. Check with your doctor. Also, ask how many glasses of fluid you need to drink a day. You must not get dehydrated. You may get drowsy or dizzy. Do not drive, use machinery, or do anything that needs mental alertness until you know how this drug affects you. Do not stand or sit up quickly, especially if you are an older patient. This reduces the risk of dizzy or fainting spells. Alcohol can make you more drowsy and dizzy. Avoid alcoholic drinks. This medicine can make you more sensitive to the sun. Keep out of the sun. If you cannot avoid being in the sun, wear protective clothing and use sunscreen. Do not use sun lamps or tanning beds/booths. You have been given the following additional information: Diabetic Hyperglycemia Diabetes, General Info Peripheral Edema, Bilateral Furosemide Oral tablet (Electronically signed by Jose R Castillo MD 09/21/2016 3:29)
== END 2016-09-20 23:50 | disposition home or self-care (01) ==
LOC: ED SRH 20:06
DX: E11.65 Type 2 diabetes mellitus with hyperglycemia (principal); R60.0 Localized edema; Z79.4 Long term (current) use of insulin; Z79.899 Other long term (current) drug therapy; Z88.8 Allergy status to other drugs, medicaments and biological substances; Z91.048 Other nonmedicinal substance allergy status
CPT/HCPCS: 90100; 90616; 91320; 91556; 92235; 92530; 92610; 95059

== ENCOUNTER 2016-10-20 15:54 | Emergency (ER) | payer OTHER ==
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
--- NOTE | 2016-10-20 20:27 | ED ORDER SUMMARY ---
..... Patient: MATTI GLEZ OrderSheet [facility] VisitID: [id number] [place] [address] 36y, F Registration Date/Time: 10/20/2016 ORDER SHEET Weight: 151.9 kg (stated) Allergies: Adhesives on tapes, Compazine, Metformin GENERAL ORDERS: Old Records (chao Admission from 10-08 thru 10-11-2016.) (16:41 10/20/2016 August[place] GRAHAM) (Ack 16:58 Kandi) (19:25 SRedavid) CBC w Diff Urgent (16:43 10/20/2016 Augusta GRAHAM) (Ack 16:58 Kandi) (17:04 KWilliams R.N.) PCT (Procalcitonin) Urgent (16:43 10/20/2016 Augusta GRAHAM) (Ack 16:58 Kandi) (17:04 KWilliams R.N.) CRP Urgent (16:43 10/20/2016 Augusta GRAHAM) (Ack 16:58 Kandi) (17:04 KWilliams R.N.) Alexis Wrap (right and left leg for compression.) (20:23 10/20/2016 Augusta GRAHAM) (Ack 20:24 SRedmond) (20:37 EInderbitzen R.N.) MEDICATION ORDERS: Acetaminophen PO 1,000 mg (NOW) (19:56 10/20/2016 EInderbitzen R.N. verbal order read back to Augusta GRAHAM) (19:57 EInderbitzen R.N.) Zofran ODT PO 4 mg (NOW) (19:57 10/20/2016 EInderbitzen R.N. verbal order read back to Augusta GRAHAM) (19:57 EInderbitzen R.N.) Hydrocortisone Cream Topical 1 application (NOW) (20:23 10/20/2016 Augusta GRAHAM) (20:31 EInderbitzen R.N.) IV FLUIDS: IV Saline Lock (16:43 10/20/2016 Augusta GRAHAM) (17:05 KWilliams R.N.) ORDER SHEET NOTES: [Electronically signed by Hattie James R.N. (20:37 10/20/2016)] [Electronically signed by Steve Gonzalez MD (12:38 10/21/2016)] [Electronically locked/signed by Hattie James R.N. (20:37 10/20/2016)]
--- NOTE | 2016-10-20 20:27 | ED ORDER SUMMARY ---
..... Patient: MATTI GLEZ OrderSheet [facility] VisitID: [id number] [place] [address] 36y, F Registration Date/Time: 10/20/2016 ORDER SHEET Weight: 151.9 kg (stated) Allergies: Adhesives on tapes, Compazine, Metformin GENERAL ORDERS: Old Records (chao Admission from 10-08 thru 10-11-2016.) (16:41 10/20/2016 Augusta GRAHAM) (Ack 16:58 Kandi) (19:25 SRedavid) CBC w Diff Urgent (16:43 10/20/2016 Augusta GRAHAM) (Ack 16:58 Kandi) (17:04 KWilliams R.N.) PCT (Procalcitonin) Urgent (16:43 10/20/2016 Augusta GRAHAM) (Ack 16:58 Kandi) (17:04 KWilliams R.N.) CRP Urgent (16:43 10/20/2016 Augusta GRAHAM) (Ack 16:58 Kandi) (17:04 KWilliams R.N.) Alexis Wrap (right and left leg for compression.) (20:23 10/20/2016 Augusta GRAHAM) (Ack 20:24 SRedmond) (20:37 EInderbitzen R.N.) MEDICATION ORDERS: Acetaminophen PO 1,000 mg (NOW) (19:56 10/20/2016 EInderbitzen R.N. verbal order read back to Augusta GRAHAM) (19:57 EInderbitzen R.N.) Zofran ODT PO 4 mg (NOW) (19:57 10/20/2016 EInderbitzen R.N. verbal order read back to Augusta GRAHAM) (19:57 EInderbitzen R.N.) Hydrocortisone Cream Topical 1 application (NOW) (20:23 10/20/2016 Augusta GRAHAM) (20:31 EInderbitzen R.N.) IV FLUIDS: IV Saline Lock (16:43 10/20/2016 Augusta GRAHAM) (17:05 KWilliams R.N.) ORDER SHEET NOTES: [Electronically signed by Hattie James R.N. (20:37 10/20/2016)] [Electronically signed by Steve Gonzalez MD (12:38 10/21/2016)] [Electronically locked/signed by Hattie James R.N. (20:37 10/20/2016)]
--- NOTE | 2016-10-21 00:43 | Progress Note ---
Subjective General Emergency Room Medical Consultation Patient Name: Darling You Consultation date: October 20, 2016 Primary Care Provider: Veronica Staton M.D. Consulting Physician: Theodore Jimenez M.D. Requesting Physician: Steve Gonzalez M.D. Code Status: Full Code Room: ER room 13 SUBJECTIVE Historian: Patient Reliability: Good Chief Complaint: Redness, swelling, cellulitis lower extremities History of Present Illness: The patient is a 36-year-old white female with a significant past medical history of irritable bowel syndrome, migraine headache, PTSD, peptic ulcer disease, diabetes mellitus, obesity, gastroesophageal reflux, depression, and recurrent lower extremity cellulitis who presented to emergency department on the day of evaluation secondary to complaints of redness, swelling, pain of bilateral lower extremities. [facility] emergency room evaluation showed the patient to have redness involving bilateral lower legs. This was associated with edema. Legs were tender to palpation. Evaluation showed the patient to be afebrile with normal WBC and negative Pro-calcitonin. The patient has experienced recurrent episodes of "cellulitis" involving the lower legs with recurrent hospitalizations. She was recently hospitalized at [facility] treated with vancomycin and subsequent Bactrim without significant improvement. She has remained afebrile throughout these episodes. ER evaluation was suggestive of venous stasis dermatitis. Please see ER physician' s notes. PAST MEDICAL HISTORY Illnesses: 1. Diabetes mellitus 2. Obesity 3. Irritable bowel syndrome 4. Migraine headache 5. PTSD 6. Chronic lower extremity edema 7. Esophageal reflux 8. Depression 9. Chronic recurrent cellulitis lower extremities Allergies: 1. Compazine 2. Metformin Medications: ValACYclovir HCl Oral (Tablet 500 mg) 1 tablet, x2 daily. TiZANidine HCl Oral (Tablet 2 mg) 2 tablets, Q8H. HydrOXYzine HCl Oral 25 mg, 4x a day. Vicodin Oral, as needed. Glimepiride Oral (Tablet 4 mg) 1 tablet, x2 daily. Dicyclomine HCl Oral 10 mg, 2x a day. Clindamycin HCl Oral 150 mgx2 , 4x a day. Atorvastatin Calcium Oral 80 mg, daily. Albuterol Sulfate Inhalation. Omeprazole Oral 20 mg, daily. FLUoxetine HCl Oral 100mg, 2x a day. Lantus Subcutaneous 55 Units, 2x a day (unsure of dose). TraZODone HCl Oral 50 mg, at bedtime. Surgery: 1. Appendectomy 2. Cholecystectomy 3. 4. Orthopedic procedure type unknown Injuries: 1. No significant Hospitalizations: 1. For above surgery and medical problems FAMILY HISTORY 1. Not reviewed Physical Exam Vital Signs / I&Os Blood pressure: 146/97 mmHg Heart rate: 93/minute Respiratory: 16/minute Temperature: 97.8 Fahrenheit orally Pulse oximetry: 98% room air General Appearance Alert, Oriented X3, Cooperative, No acute distress Extremities No cyanosis, No clubbing, symmetrical edema bilateral lower extremities. Tender to palpation. Skin Bilateral mild erythema present lower legs fairly symmetrical. No skin lesions. Psych/Mental Status Mental status normal, Mood normal LAB Results Laboratory Tests 10/20 10/20 1700 1700 Chemistry C-Reactive Protein (0.0 - 0.9 mg/dL) 1.9 Procalcitonin (0 - 0.5 ng/mL) <0.5 Hematology WBC (4.5 - 11.5 K/uL) 8.3 RBC (4.00 - 5.20 M/uL) 4.20 Hgb (12.0 - 16.0 gm/dL) 11.9 Hct (36.0 - 46.0 %) 35.8 MCV (80 - 100 fL) 85 MCH (26 - 34 pg) 29 RDW (11.6 - 14.8 %) 14.1 Neut % (Auto) (50 - 75 %) 66.8 Lymph % (Auto) (25 - 40 %) 27.6 [place] % (Auto) (3 - 14 %) 4.6 Eos % (Auto) (0 - 4 %) 0.7 Baso % (Auto) (0 - 2 %) 0.3 Plt Count, EDTA (150 - 400 K/uL) 246 PUBS MCHC (31 - 37 g/dL) 33 Assessment and Plan Problem List 1. Venous stasis dermatitis Status Chronic Onset Date Unknown Plan -Patient presents with bilateral lower extremity redness, tenderness, edema. -Erythema symmetrical bilaterally-below knees -Area tender to palpation -Findings most consistent with venous stasis dermatitis -Dr. Gonzalez feels patient's status consistent with venous stasis dermatitis. -Case discussed with Dr. Gonzalez will treat with venous compression wraps, topical corticosteroids, low-dose diuretics, elevation, and close follow-up by PCP in 2 days. -I instructed the patient to keep legs up as much as possible. Monitor for fever. Worsening in erythema or asymmetry changes in rash, swelling, pain. -Discharge per Dr. Gonzalez Current status: Fair, stable Anticipated discharge date: Today Anticipated discharge placement: Home with close follow-up with PCP in 2 days Patient care time: Time spent in chart review, patient interview, physical exam, CPOE, and care documentation: 35 minutes Visit to patient today: 1 Complexity of care: Low E&M Codes Outpatient Consult: [facility]/[id number] Plan -Patient presents with bilateral lower extremity redness, tenderness, edema. -Erythema symmetrical bilaterally-below knees -Area tender to palpation -Findings most consistent with venous stasis dermatitis -Dr. Gonzalez feels patient's status consistent with venous stasis dermatitis. -Case discussed with Dr. Gonzalez will treat with venous compression wraps, topical corticosteroids, low-dose diuretics, elevation, and close follow-up by PCP in 2 days. -I instructed the patient to keep legs up as much as possible. Monitor for fever. Worsening in erythema or asymmetry changes in rash, swelling, pain. -Discharge per Dr. Gonzalez Current status: Fair, stable Anticipated discharge date: Today Anticipated discharge placement: Home with close follow-up with PCP in 2 days Patient care time: Time spent in chart review, patient interview, physical exam, CPOE, and care documentation: 35 minutes Visit to patient today: 1 Complexity of care: Low E&M Codes Outpatient Consult: [facility]/[id number]
--- NOTE | 2016-10-21 12:39 | ED MED RECONCILIATION SUMMARY ---
Patient: MATTI GLEZ Medication Reconciliation Report [facility] VisitID: [id number] [place] [address] 36y, F Registration Date/Time: 10/20/2016 Weight: 151.9 kg Height/Length: 66 in. BMI: 54.1 ALLERGIES: Adhesives on tapes, Compazine, Metformin The patient's Home Medications are listed below: STOP TAKING THE FOLLOWING MEDICATIONS: Clindamycin HCl Oral 150 mgx2 , 4x a day CONTINUE TAKING THE FOLLOWING MEDICATIONS: Albuterol Sulfate Inhalation Atorvastatin Calcium Oral 80 mg, daily Dicyclomine HCl Oral 10 mg, 2x a day FLUoxetine HCl Oral 100mg, 2x a day Glimepiride Oral (4 mg) 1 tablet, x2 daily HydrOXYzine HCl Oral 25 mg, 4x a day Lantus Subcutaneous 55 Units, 2x a day, unsure of dose Omeprazole Oral 20 mg, daily TiZANidine HCl Oral (2 mg) 2 tablets, Q8H TraZODone HCl Oral 50 mg, at bedtime ValACYclovir HCl Oral (500 mg) 1 tablet, x2 daily Vicodin Oral The source(s) of the original Home Medication information: Not obtained. The following Medications were given to the patient in the Emergency Department: Acetaminophen [PO] PO 1000 mg, administered: 10/20/2016 7:57:00 PM Zofran ODT [PO] PO 4 mg, administered: 10/20/2016 7:57:00 PM HYDROCORTISONE CREAM [TOPICAL] Topical 1 application, administered: 10/20/2016 8:28:00 PM The following Medications were prescribed to the patient: Ultram 50 mg tablets: take 1-2 orally every 6 hours as needed for pain. Dispense twenty (20). No refills. Substitution is permissible. -- Steve Gonzalez MD Lasix 40 mg: take 1 orally every 24 hours. Dispense five (5). No refills. -- Steve Gonzalez MD Hydrocortisone 2.5% cream: apply to affected areas twice daily for 1 week, as needed for rash or irritation, until symptoms improve. Dispense sixty (60) grams. No refills. -- Steve Gonzalez MD
--- NOTE | 2016-10-21 12:39 | ED MAR SUMMARY ---
..... Medication Administration Record [facility] [address] [place] [address] Patient: MATTI GLEZ Visit ID: [id number] 36y, F Weight: 151.9 kg Height/Length: 66 in BMI: 54.1 ALLERGIES: Adhesives on tapes, Compazine, Metformin Given 19:10/20/2016 Hattie James R.N. Medication Administered: ACETAMINOPHEN [PO] (APAP), Dose: 1000 mg Tablets PO. Medication Ordered: Acetaminophen PO 1,000 mg (NOW). Given :57 10/20/2016 Hattie James R.N. Medication Administered: ZOFRAN ODT [PO] (ONDANSETRON), Dose: 4 mg Oral Disintegrating Tablets PO. Medication Ordered: Zofran ODT PO 4 mg (NOW). Given 20:28 10/20/2016 Hattie James R.N. Medication Administered: HYDROCORTISONE CREAM [TOPICAL] (HYDROCORTISONE), Dose: 1 application Cream Topical. Medication Ordered: Hydrocortisone Cream Topical 1 application (NOW).
--- NOTE | 2016-10-21 12:39 | ED MED RECONCILIATION SUMMARY ---
Patient: MATTI GLEZ Medication Reconciliation Report [facility] VisitID: [id number] [place] [address] 36y, F Registration Date/Time: 10/20/2016 Weight: 151.9 kg Height/Length: 66 in. BMI: 54.1 ALLERGIES: Adhesives on tapes, Compazine, Metformin The patient's Home Medications are listed below: STOP TAKING THE FOLLOWING MEDICATIONS: Clindamycin HCl Oral 150 mgx2 , 4x a day CONTINUE TAKING THE FOLLOWING MEDICATIONS: Albuterol Sulfate Inhalation Atorvastatin Calcium Oral 80 mg, daily Dicyclomine HCl Oral 10 mg, 2x a day FLUoxetine HCl Oral 100mg, 2x a day Glimepiride Oral (4 mg) 1 tablet, x2 daily HydrOXYzine HCl Oral 25 mg, 4x a day Lantus Subcutaneous 55 Units, 2x a day, unsure of dose Omeprazole Oral 20 mg, daily TiZANidine HCl Oral (2 mg) 2 tablets, Q8H TraZODone HCl Oral 50 mg, at bedtime ValACYclovir HCl Oral (500 mg) 1 tablet, x2 daily Vicodin Oral The source(s) of the original Home Medication information: Not obtained. The following Medications were given to the patient in the Emergency Department: Acetaminophen [PO] PO 1000 mg, administered: 10/20/2016 7:57:00 PM Zofran ODT [PO] PO 4 mg, administered: 10/20/2016 7:57:00 PM HYDROCORTISONE CREAM [TOPICAL] Topical 1 application, administered: 10/20/2016 8:28:00 PM The following Medications were prescribed to the patient: Ultram 50 mg tablets: take 1-2 orally every 6 hours as needed for pain. Dispense twenty (20). No refills. Substitution is permissible. -- Steve Gonzalez MD Lasix 40 mg: take 1 orally every 24 hours. Dispense five (5). No refills. -- Steve Gonzalez MD Hydrocortisone 2.5% cream: apply to affected areas twice daily for 1 week, as needed for rash or irritation, until symptoms improve. Dispense sixty (60) grams. No refills. -- Steve Gonzalez MD
--- NOTE | 2016-10-21 12:39 | ED MAR SUMMARY ---
..... Medication Administration Record [facility] [address] [place] [address] Patient: MATTI GLEZ Visit ID: [id number] 36y, F Weight: 151.9 kg Height/Length: 66 in BMI: 54.1 ALLERGIES: Adhesives on tapes, Compazine, Metformin Given 19:10/20/2016 Hattie James R.N. Medication Administered: ACETAMINOPHEN [PO] (APAP), Dose: 1000 mg Tablets PO. Medication Ordered: Acetaminophen PO 1,000 mg (NOW). Given :57 10/20/2016 Hattie James R.N. Medication Administered: ZOFRAN ODT [PO] (ONDANSETRON), Dose: 4 mg Oral Disintegrating Tablets PO. Medication Ordered: Zofran ODT PO 4 mg (NOW). Given 20:28 10/20/2016 Hattie James R.N. Medication Administered: HYDROCORTISONE CREAM [TOPICAL] (HYDROCORTISONE), Dose: 1 application Cream Topical. Medication Ordered: Hydrocortisone Cream Topical 1 application (NOW).
--- NOTE | 2016-10-21 12:39 | ED DISCHARGE INSTRUCTIONS ---
Patient: MATTI GLEZ General Instructions [facility] VisitID: [id number] [place] [address] 36y, F Registration Date/Time: 10/20/2016 Chronic venous insufficiency of the right lower extremity with edema, pain and stasis dermatitis and left lower extremity with edema, pain and stasis dermatitis. INSTRUCTIONS Wear elastic wrap (Alexis wrap) as directed until better. Elevate affected areas above chest level for three days until better (legs). Follow a low salt diet. Lose weight. Warnings: Further evaluation is necessary. Your Current Medications: STOP TAKING THE FOLLOWING MEDICATIONS: Clindamycin HCl Oral : 150 mgx2 4x a day. CONTINUE TAKING THE FOLLOWING MEDICATIONS: Albuterol Sulfate Inhalation. Atorvastatin Calcium Oral : 80 mg daily. Dicyclomine HCl Oral : 10 mg 2x a day. FLUoxetine HCl Oral : 100mg 2x a day. Glimepiride Oral : Tablet 4 mg, 1 tablet x2 daily. HydrOXYzine HCl Oral : 25 mg 4x a day. Lantus Subcutaneous : 55 Units 2x a day, unsure of dose. Omeprazole Oral : 20 mg daily. TiZANidine HCl Oral : Tablet 2 mg, 2 tablets Q8H. TraZODone HCl Oral : 50 mg at bedtime. ValACYclovir HCl Oral : Tablet 500 mg, 1 tablet x2 daily. Vicodin Oral : prn. Prescription Medications: Ultram 50 mg tablets: take 1-2 orally every 6 hours as needed for pain. Dispense twenty (20). No refills. Substitution is permissible. Lasix 40 mg: take 1 orally every 24 hours. Dispense five (5). No refills. Hydrocortisone 2.5% cream: apply to affected areas twice daily for 1 week, as needed for rash or irritation, until symptoms improve. Dispense sixty (60) grams. No refills. Follow-up: Follow up with your doctor Saturday in four days as scheduled. Understanding of the discharge instructions verbalized by patient and family. ADDITIONAL INFORMATION VenousLeg Ulcer Arteries carry oxygenated blood from the heart to the rest of the body. Veins return the blood to the heart. When sitting or standing, venous blood in the legs mustflow uphill to the heart.There are two ways this happens.When you walk and move your legs, the contraction of the muscles has a pumping effect on the blood in the veins. The veins have one-way valves that prevent the backward flow of blood. When there is poor venous circulation (venous insufficiency), the one-way valves are damaged and blood does not flow uphill very well. This raises pressure in the veins and the tissues dont get enough oxygen. As the problem worsens, an area of skin near the ankle turns dark and an ulcer forms. This is called a venous stasis ulcer.These ulcers usually do not hurt unless they become infected. Venous stasis ulcers are treated with compression wraps, topical antibiotics and special dressings. Sometimes skin grafting is required. Once healed, compression stocking are used to assist the pumping action in the veins and to reduce swelling. Home Care Use any special compression dressings or stockings as directed. If you were advised to change your dressing, follow the directions of your doctor. There are many different kinds of dressings for this problem and each is used differently. Walk regularly. This improves circulation in your legs. Maintain a healthy weight. If you are overweight, talk to your doctor about a weight loss program. If you smoke, quit smoking. This will lessen your symptoms and lower your chance that the disease will get worse. Join a stop-smoking program or talk to your doctor for assistance. Check your feet and legs for skin breaks or color changes. Report these to your doctor. This could be an early sign of an ulcer. Wear comfortable, well-fitting shoes and socks. Do not use socks that are tight. If they leave a dent in your leg by the end of the day, they are too tight. When standing, shift your weight from one leg to the other. When sitting for long periods, elevate your feet. Move your feet and ankles often to activate your calf muscles. Get up and walk from time to time. Follow Up with your doctor as advised by our staff. Get Prompt Medical Attention if any of the following occur: Pus or discharge coming from the ulcer Pain in or around the ulcer Redness or swelling of the leg around the ulcer Fever of 100.4F (38C) or higher, or as directed by your healthcare provider Shortness of breath or painful breathing Chest pain, repeated cough, or coughing up blood Furosemide Oral tablet What is this medicine? FUROSEMIDE (fyoor [place] se mide) is a diuretic. It helps you make more urine and to lose salt and excess water from your body. This medicine is used to treat high blood pressure, and edema or swelling from heart, kidney, or liver disease. How should I use this medicine? Take this medicine by mouth with a glass of water. Follow the directions on the prescription label. You may take this medicine with or without food. If it upsets your stomach, take it with food or milk. Do not take your medicine more often than directed. Remember that you will need to pass more urine after taking this medicine. Do not take your medicine at a time of day that will cause you problems. Do not take at bedtime. Talk to your copy and print associate regarding the use of this medicine in children. While this drug may be prescribed for selected conditions, precautions do apply. What side effects may I notice from receiving this medicine? Side effects that you should report to your doctor or health ocular care technician as soon as possible: blood in urine or stools dry mouth fever or chills hearing loss or ringing in the ears irregular heartbeat muscle pain or weakness, cramps skin rash stomach upset, pain, or nausea tingling or numbness in the hands or feet unusually weak or tired vomiting or diarrhea yellowing of the eyes or skin Side effects that usually do not require medical attention (report to your doctor or health ocular care technician if they continue or are bothersome): headache loss of appetite unusual bleeding or bruising What may interact with this medicine? aspirin and aspirin-like medicines certain antibiotics chloral hydrate cisplatin cyclosporine digoxin diuretics laxatives lithium medicines for blood pressure medicines that relax muscles for surgery methotrexate NSAIDs, medicines for pain and inflammation like ibuprofen, naproxen, or indomethacin phenytoin steroid medicines like prednisone or cortisone sucralfate What if I miss a dose? If you miss a dose, take it as soon as you can. If it is almost time for your next dose, take only that dose. Do not take double or extra doses. Where should I keep my medicine? Keep out of the reach of children. Store at room temperature between 15 and 30 degrees C (59 and 86 degrees F). Protect from light. Throw away any unused medicine after the expiration date. What should I tell my health care provider before I take this medicine? They need to know if you have any of these conditions: abnormal blood electrolytes diarrhea or vomiting gout heart disease kidney disease, small amounts of urine, or difficulty passing urine liver disease an unusual or allergic reaction to furosemide, sulfa drugs, other medicines, foods, dyes, or preservatives or trying to get breast-feeding What should I watch for while using this medicine? Visit your doctor or health ocular care technician for regular checks on your progress. Check your blood pressure regularly. Ask your doctor or health ocular care technician what your blood pressure should be, and when you should contact him or her. If you are a diabetic, check your blood sugar as directed. You may need to be on a special diet while taking this medicine. Check with your doctor. Also, ask how many glasses of fluid you need to drink a day. You must not get dehydrated. You may get drowsy or dizzy. Do not drive, use machinery, or do anything that needs mental alertness until you know how this drug affects you. Do not stand or sit up quickly, especially if you are an older patient. This reduces the risk of dizzy or fainting spells. Alcohol can make you more drowsy and dizzy. Avoid alcoholic drinks. This medicine can make you more sensitive to the sun. Keep out of the sun. If you cannot avoid being in the sun, wear protective clothing and use sunscreen. Do not use sun lamps or tanning beds/booths. You have been given the following additional information: Venous Leg Ulcer Furosemide Oral tablet (Electronically signed by Steve Gonzalez MD 10/21/2016 12:38)
== END 2016-10-20 20:36 | disposition home or self-care (01) ==
LOC: ED SRH 15:54 → TRANS SRH 20:10 → ED SRH 20:36
DX: I83.12 Varicose veins of left lower extremity with inflammation (principal); I83.11 Varicose veins of right lower extremity with inflammation; E11.9 Type 2 diabetes mellitus without complications; Z79.4 Long term (current) use of insulin; Z88.8 Allergy status to other drugs, medicaments and biological substances; Z79.2 Long term (current) use of antibiotics; Z79.899 Other long term (current) drug therapy; Z91.048 Other nonmedicinal substance allergy status
CPT/HCPCS: 91585; 93004; 95059

== ENCOUNTER 2016-11-03 18:21 | Emergency (ER) | payer OTHER ==
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
--- NOTE | 2016-11-03 19:03 | ED CLINICAL REPORT ---
Clinical Report - Physicians/Mid Levels [facility] [address] [place] [address] 11/03/2016 18:22 Patient: MATTI GLEZ Time Seen: 18:33; initial patient contact. Arrived- By private vehicle. Historian- patient. HISTORY OF PRESENT ILLNESS Chief Complaint: LOWER EXTREMITY SWELLING. Modifying factors- worsened by sitting and standing. Relieved by lying down. This started years ago and is still present. Severity is described as being moderate. The quality is noted to be aching and "pain". Symptoms located in the area of the right leg and left leg. The patient has had redness and swelling. She has had moderate difficulty walking. It has been associated with pain in both legs. Patient denies an injury. Similar symptoms previously: Several times. Recent medical care: The patient was seen recently at another facility in the office. REVIEW OF SYSTEMS No cough, chest pain or difficulty breathing. All systems otherwise negative, except as recorded above. PAST HISTORY See nurses notes. Problems: Chronic Venous Insufficiency. Irritable Bowel Syndrome. Hyperglycemia. Pedal Edema. Medications: Lasix Oral. Albuterol Sulfate Inhalation. Atorvastatin Calcium Oral 80 mg, daily. Clindamycin HCl Oral 150 mgx2 , 4x a day. Dicyclomine HCl Oral 10 mg, 2x a day. FLUoxetine HCl Oral 100mg, 2x a day. Glimepiride Oral (Tablet 4 mg) 1 tablet, x2 daily. HydrOXYzine HCl Oral 25 mg, 4x a day. Lantus Subcutaneous 55 Units, 2x a day (unsure of dose). Omeprazole Oral 20 mg, daily. TiZANidine HCl Oral (Tablet 2 mg) 2 tablets, Q8H. TraZODone HCl Oral 50 mg, at bedtime. ValACYclovir HCl Oral (Tablet 500 mg) 1 tablet, x2 daily. Vicodin Oral, as needed. Allergies: Adhesives on tapes. Compazine. (migraines) Metformin. SOCIAL HISTORY No drug use. FAMILY HISTORY Negative. ADDITIONAL NOTES The nursing notes have been reviewed with agreement regarding the chief complaint, HPI, ROS, PMH and patient medications and allergies. PHYSICAL EXAM Vital Signs: 11/03/2016 18:33 BP: 146/85. HR: 80. RR: 12. O2 saturation: 100%. Temp: 98.7 F. Pain level now: 02/21. Have been reviewed. Appearance: Alert. Oriented X3. No acute distress. Anxious. Eyes: Pupils equal, round and reactive to light. CVS: Normal heart rate and rhythm. Heart sounds normal. Respiratory: No respiratory distress. Breath sounds normal. Skin: Skin intact. Skin warm and dry. Extremities: Right leg: mild erythema, tenderness and swelling located in the anterior aspect of lower leg. Neurovascular intact distally. Left leg: mild erythema, tenderness and swelling located in the anterior aspect of lower leg. Neurovascular intact distally. Swelling, warmth, tenderness and erythema present in the right leg and left leg. No drainage or lymphangitis. Bilateral mild 1+ non-pitting edema of the lower extremities involving both lower legs. No calf tenderness. Gait: Limping gait. Neuro, Vascular and Tendons: Lower extremity capillary refill not prolonged. Neuro: Oriented X 3. CLINICAL IMPRESSION Bilateral pedal edema secondary to chronic venous insufficiency. Cellulitis of the right lower leg and left lower leg. Chronic, poorly controlled type 2 diabetes with hyperglycemia. No coma. Morbid obesity (BMI >=40) due to excess calories. INSTRUCTIONS Wear elastic wrap (Alexis wrap) as directed until better. Elevate affected areas above chest level until better. Other diet: lower your carbohydrate content. (continue to ALEXIS wrap from the feet up). Your Current Medications: Prescription Medications: Trimethoprim-Sulfamethoxazole DS: take 1 tablet orally every 12 hours for 10 days. No refill. Oxycodone/APAP 5 mg/325 mg: take 1 tablet orally every 8 hours as needed for pain. Dispense ten (10). No refill. Diflucan 150 mg tablets: initially take 1 tablet orally , then take 1 tablet orally every day for 4 days. No refill. Substitution is permissible. Follow-up: Follow up with your doctor in one week if not better. Call for an appointment. Follow up with a wound care clinic Saturday as scheduled. Understanding of the discharge instructions verbalized by patient and family. (Electronically signed by Mariana Fox PA-C 11/03/2016 22:19)
--- NOTE | 2016-11-03 22:19 | ED MAR SUMMARY ---
..... Medication Administration Record [facility] [address] [place], [place] [id number] Patient: MATTI GLEZ Visit ID: [id number] 36y, F Weight: 151.4 kg Height/Length: 66 in BMI: 53.9 ALLERGIES: Adhesives on tapes, Compazine, Metformin
--- NOTE | 2016-11-03 22:19 | ED MED RECONCILIATION SUMMARY ---
Patient: MATTI GLEZ Medication Reconciliation Report [facility] VisitID: [id number] [place] [address] 36y, F Registration Date/Time: 11/03/2016 Weight: 151.4 kg Height/Length: 66 in. BMI: 53.9 ALLERGIES: Adhesives on tapes, Compazine, Metformin The patient's Home Medications are listed below: THE FOLLOWING MEDICATIONS NEED TO BE RECONCILED: Clindamycin HCl Oral 150 mgx2 , 4x a day Albuterol Sulfate Inhalation Atorvastatin Calcium Oral 80 mg, daily Dicyclomine HCl Oral 10 mg, 2x a day FLUoxetine HCl Oral 100mg, 2x a day Glimepiride Oral (4 mg) 1 tablet, x2 daily HydrOXYzine HCl Oral 25 mg, 4x a day Lantus Subcutaneous 55 Units, 2x a day, unsure of dose Lasix Oral Omeprazole Oral 20 mg, daily TiZANidine HCl Oral (2 mg) 2 tablets, Q8H TraZODone HCl Oral 50 mg, at bedtime ValACYclovir HCl Oral (500 mg) 1 tablet, x2 daily Vicodin Oral The source(s) of the original Home Medication information: Not obtained. The following Medications were given to the patient in the Emergency Department: None. The following Medications were prescribed to the patient: Trimethoprim-Sulfamethoxazole DS: take 1 tablet orally every 12 hours for 10 days. No refill. -- Mariana Fox PA-C Oxycodone/APAP 5 mg/325 mg: take 1 tablet orally every 8 hours as needed for pain. Dispense ten (10). No refill. -- Mariana Fox PA-C Diflucan 150 mg tablets: initially take 1 tablet orally , then take 1 tablet orally every day for 4 days. No refill. Substitution is permissible. -- Mariana Fox PA-C
--- NOTE | 2016-11-03 22:19 | ED DISCHARGE INSTRUCTIONS ---
Patient: MATTI GLEZ General Instructions [facility] VisitID: [id number] [place] [address] 36y, F Registration Date/Time: 11/03/2016 Bilateral pedal edema secondary to chronic venous insufficiency. Cellulitis of the right lower leg and left lower leg. Chronic, poorly controlled type 2 diabetes with hyperglycemia. No coma. Morbid obesity (BMI >=40) due to excess calories. INSTRUCTIONS Wear elastic wrap (Alexis wrap) as directed until better. Elevate affected areas above chest level until better. Other diet: lower your carbohydrate content. (continue to ALEXIS wrap from the feet up). Your Current Medications: Prescription Medications: Trimethoprim-Sulfamethoxazole DS: take 1 tablet orally every 12 hours for 10 days. No refill. Oxycodone/APAP 5 mg/325 mg: take 1 tablet orally every 8 hours as needed for pain. Dispense ten (10). No refill. Diflucan 150 mg tablets: initially take 1 tablet orally , then take 1 tablet orally every day for 4 days. No refill. Substitution is permissible. Follow-up: Follow up with your doctor in one week if not better. Call for an appointment. Follow up with a wound care clinic Saturday as scheduled. Understanding of the discharge instructions verbalized by patient and family. ADDITIONAL INFORMATION Cellulitis You have an infection of the skin known as cellulitis. This usually starts with a scrape, cut, insect bite, blister or other opening in the skin which becomes infected. This is a serious condition. It must be watched closely to be sure the infection is not spreading. With antibiotic treatment, the size of the red area will gradually shrink in size until the skin returns to normal. This will take 7-10 days. The red area should never increase in size once the antibiotic medicine has been started. Occasionally, an infection will be resistant to one antibiotic and another one will have to be used. Home Care: 1) Limit the use of the affected part, since excess movement can cause the infection to spread. 2) If the infection is on your leg, walk as little as possible during the first few days of the treatment. Keep your leg elevated while sitting. This will reduce swelling. 3) Take all of the antibiotic medicine exactly as directed until it is gone. Be careful not to miss any doses, especially during the first seven days. Follow Up with your doctor or this facility as directed. Check the infected area daily for the warning signs listed below. Get Prompt Medical Attention if any of the following occur: -- Spreading area of redness -- Increasing swelling or pain -- Appearance of pus or drainage -- Fever over 100.4 F (38.0 C) oral, or over 101.4 F (38.6 C) rectal, after two days on antibiotics Leg Swelling [Bilateral] Swelling of the feet, ankles and legs is called "Edema." It is due to excess fluid collecting in the tissues. Because of gravity, excess fluid in the body settles in the lowest part. This is why the legs and feet are most affected. Some of the causes for edema include: Disease of the heart (congestive heart failure or "CHF") Prolonged standing or sitting (with the legs in the down position) Infection of the feet or legs Venous Insufficiency (congestion of blood in the veins of the legs) Varicose veins (dilated veins of the lower leg) Garters, or clothing that constricts your legs. (These will cause venous congestion by restricting blood flow.) Some medicines (hormones such as control pills; some blood pressure medicines, such as calcium channel blockers; steroids; some antidepressants such as MAO inhibitors and tricyclics.) Menstrual periods with fluid retention Renal insufficiency (a form of kidney disease) Liver failure (Some swelling is normal, but a sudden increase in leg swelling or weight gain can be a sign of a dangerous complication of ). Medical treatment will depend on the cause of your swelling. Diuretics (water pills) may be prescribed to remove excess fluid. Home Care: Do not wear garments that constrict your legs (such as garters). Elevate your legs while lying or sitting. If infection, injury or recent surgery is the cause for your swelling, stay off your legs as much as possible until symptoms improve. If your doctor says that your leg swelling is caused by venous insufficiency or varicose veins, do not sit or porcelain enamel installer one place for long periods of time. Take breaks and walk about every few hours. Brisk walking is a good exercise and helps circulate the congested blood from your leg. Talk to your doctor about the use of support stockings to prevent daytime leg swelling. If your doctor says that heart disease is the cause of your leg swelling, follow a low-salt diet to prevent excess fluid retention. Follow Up with your doctor or as advised by our staff. Get Prompt Medical Attention if any of the following occur: New or worsening shortness of breath or chest pain Increasing swelling in both legs or ankles Swelling of the abdomen Redness, warmth or swelling in one leg Fever of 100.4F (38C) or higher, or as directed by your healthcare provider Yellow color to the skin or eyes Rapid, unexplained weight gain You have been given the following additional information: Cellulitis Peripheral Edema, Bilateral (Electronically signed by Mariana Fox PA-C 11/03/2016 22:19)
--- NOTE | 2016-11-03 22:19 | ED MED RECONCILIATION SUMMARY ---
Patient: MATTI GLEZ Medication Reconciliation Report [facility] VisitID: [id number] [place] [address] 36y, F Registration Date/Time: 11/03/2016 Weight: 151.4 kg Height/Length: 66 in. BMI: 53.9 ALLERGIES: Adhesives on tapes, Compazine, Metformin The patient's Home Medications are listed below: THE FOLLOWING MEDICATIONS NEED TO BE RECONCILED: Clindamycin HCl Oral 150 mgx2 , 4x a day Albuterol Sulfate Inhalation Atorvastatin Calcium Oral 80 mg, daily Dicyclomine HCl Oral 10 mg, 2x a day FLUoxetine HCl Oral 100mg, 2x a day Glimepiride Oral (4 mg) 1 tablet, x2 daily HydrOXYzine HCl Oral 25 mg, 4x a day Lantus Subcutaneous 55 Units, 2x a day, unsure of dose Lasix Oral Omeprazole Oral 20 mg, daily TiZANidine HCl Oral (2 mg) 2 tablets, Q8H TraZODone HCl Oral 50 mg, at bedtime ValACYclovir HCl Oral (500 mg) 1 tablet, x2 daily Vicodin Oral The source(s) of the original Home Medication information: Not obtained. The following Medications were given to the patient in the Emergency Department: None. The following Medications were prescribed to the patient: Trimethoprim-Sulfamethoxazole DS: take 1 tablet orally every 12 hours for 10 days. No refill. -- Mariana Fox PA-C Oxycodone/APAP 5 mg/325 mg: take 1 tablet orally every 8 hours as needed for pain. Dispense ten (10). No refill. -- Mariana Fox PA-C Diflucan 150 mg tablets: initially take 1 tablet orally , then take 1 tablet orally every day for 4 days. No refill. Substitution is permissible. -- Mariana Fox PA-C
--- NOTE | 2016-11-03 22:19 | ED MAR SUMMARY ---
..... Medication Administration Record [facility] [address] [place], [place] [id number] Patient: MATTI GLEZ Visit ID: [id number] 36y, F Weight: 151.4 kg Height/Length: 66 in BMI: 53.9 ALLERGIES: Adhesives on tapes, Compazine, Metformin
== END 2016-11-03 19:05 | disposition home or self-care (01) ==
LOC: ED SRH 18:21
DX: I87.2 Venous insufficiency (chronic) (peripheral) (principal); L03.115 Cellulitis of right lower limb; L03.116 Cellulitis of left lower limb; E11.65 Type 2 diabetes mellitus with hyperglycemia; E66.01 Morbid (severe) obesity due to excess calories; Z79.84 Long term (current) use of oral hypoglycemic drugs; Z79.899 Other long term (current) drug therapy; Z79.4 Long term (current) use of insulin

== ENCOUNTER 2016-11-26 19:01 | Emergency (ER) | payer OTHER ==
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
--- NOTE | 2016-11-26 22:25 | ED MED RECONCILIATION SUMMARY ---
Patient: MATTI GLEZ Medication Reconciliation Report [facility] VisitID: [id number] [address] [place] [address] 36y, F Registration Date/Time: 11/26/2016 Weight: 156.5 kg Height/Length: 66 in. BMI: 55.7 ALLERGIES: Adhesives on tapes, Compazine, Metformin The patient's Home Medications are listed below: THE FOLLOWING MEDICATIONS NEED TO BE RECONCILED: Albuterol Sulfate Inhalation Atorvastatin Calcium Oral 80 mg, daily Clindamycin HCl Oral 150 mgx2 , 4x a day Dicyclomine HCl Oral 10 mg, 2x a day FLUoxetine HCl Oral 100mg, 2x a day Glimepiride Oral (4 mg) 1 tablet, x2 daily HydrOXYzine HCl Oral 25 mg, 4x a day Lantus Subcutaneous 55 Units, 2x a day, unsure of dose Lasix Oral Omeprazole Oral 20 mg, daily TiZANidine HCl Oral (2 mg) 2 tablets, Q8H TraZODone HCl Oral 50 mg, at bedtime ValACYclovir HCl Oral (500 mg) 1 tablet, x2 daily Vicodin Oral The source(s) of the original Home Medication information: Not obtained. The following Medications were given to the patient in the Emergency Department: None. The following Medications were prescribed to the patient: None.
--- NOTE | 2016-11-26 22:25 | ED DISCHARGE INSTRUCTIONS ---
Patient: MATTI GLEZ General Instructions [facility] VisitID: [id number] [address] [place] [address] 36y, F Registration Date/Time: 11/26/2016 Chronic nontraumatic lumbar back pain associated with degenerative disc disease of the lumbar spine. Sciatica present on the right and left. Sensory deficit present. (Electronically signed by Shannon Jesus A.R.N.P. 11/26/2016 22:25)
--- NOTE | 2016-11-26 22:25 | ED MAR SUMMARY ---
..... Medication Administration Record [facility] [address] [place], [place] [id number] Patient: MATTI GLEZ Visit ID: [id number] 36y, F Weight: 156.5 kg Height/Length: 66 in BMI: 55.7 ALLERGIES: Adhesives on tapes, Compazine, Metformin
--- NOTE | 2016-11-26 22:25 | ED MAR SUMMARY ---
..... Medication Administration Record [facility] [address] [place], [place] [id number] Patient: MATTI GLEZ Visit ID: [id number] 36y, F Weight: 156.5 kg Height/Length: 66 in BMI: 55.7 ALLERGIES: Adhesives on tapes, Compazine, Metformin
--- NOTE | 2016-11-26 22:25 | ED MED RECONCILIATION SUMMARY ---
Patient: MATTI GLEZ Medication Reconciliation Report [facility] VisitID: [id number] [address] [place] [address] 36y, F Registration Date/Time: 11/26/2016 Weight: 156.5 kg Height/Length: 66 in. BMI: 55.7 ALLERGIES: Adhesives on tapes, Compazine, Metformin The patient's Home Medications are listed below: THE FOLLOWING MEDICATIONS NEED TO BE RECONCILED: Albuterol Sulfate Inhalation Atorvastatin Calcium Oral 80 mg, daily Clindamycin HCl Oral 150 mgx2 , 4x a day Dicyclomine HCl Oral 10 mg, 2x a day FLUoxetine HCl Oral 100mg, 2x a day Glimepiride Oral (4 mg) 1 tablet, x2 daily HydrOXYzine HCl Oral 25 mg, 4x a day Lantus Subcutaneous 55 Units, 2x a day, unsure of dose Lasix Oral Omeprazole Oral 20 mg, daily TiZANidine HCl Oral (2 mg) 2 tablets, Q8H TraZODone HCl Oral 50 mg, at bedtime ValACYclovir HCl Oral (500 mg) 1 tablet, x2 daily Vicodin Oral The source(s) of the original Home Medication information: Not obtained. The following Medications were given to the patient in the Emergency Department: None. The following Medications were prescribed to the patient: None.
--- NOTE | 2016-11-26 22:25 | ED DISCHARGE INSTRUCTIONS ---
Patient: MATTI GLEZ General Instructions [facility] VisitID: [id number] [address] [place] [address] 36y, F Registration Date/Time: 11/26/2016 Chronic nontraumatic lumbar back pain associated with degenerative disc disease of the lumbar spine. Sciatica present on the right and left. Sensory deficit present. (Electronically signed by Shannon Jesus A.R.N.P. 11/26/2016 22:25)
== END 2016-11-26 21:09 | disposition short-term general hospital (02) ==
LOC: ED SRH 19:01
DX: M51.16 Intervertebral disc disorders with radiculopathy, lumbar region (principal); G89.29 Other chronic pain; M54.5 Low back pain; E11.9 Type 2 diabetes mellitus without complications; Z79.4 Long term (current) use of insulin; Z79.899 Other long term (current) drug therapy; Z79.891 Long term (current) use of opiate analgesic; Z88.8 Allergy status to other drugs, medicaments and biological substances; Z91.048 Other nonmedicinal substance allergy status

== ENCOUNTER 2017-01-16 09:54 | Emergency (ER) | payer OTHER ==
--- NOTE | 2017-01-16 14:21 | DIAGNOSTIC IMAGING REPORT ---
PROCEDURE: MR LUMBAR SPINE W/WO CONTRAST; FAILED EXAM INDICATION: DISKITIS, WORSENING PAIN/NUMBNESS FINDINGS: The patient too large for exam. The patient was placed on the table but could not go inside the MRI bore. IMPRESSION: 1. Failed exam.
--- NOTE | 2017-01-16 14:33 | DIAGNOSTIC IMAGING REPORT ---
PROCEDURE: CT LUMBAR SPINE WITH CONTRAST INDICATION: DISKITIS/WORSENING PAIN TECHNIQUE: 125 ml of Isovue 300 administered IV and axial scans were obtained through the lumbar spine with coronal and sagittal re-formations. COMPARISON: CT abdomen/pelvis sagittal reconstructions 11/03/2014. FINDINGS: There is normal alignment without fracture. Normal place without evidence of erosive changes. There is moderate L5-S1 disc space narrowing which is unchanged. There is no evidence of enhancing paraspinal soft tissue mass/phlegmon/abscess. L1-2: Normal. L2-3: Normal. L3-4: Normal. L4-5: Small broad-based disc bulge with mild right foraminal stenosis. No spinal stenosis. L5-S1: Moderate broad-based disc bulge/spur complex with moderate right and severe left foraminal stenosis. No spinal stenosis. IMPRESSION: 1. No evidence of diskitis or paraspinal abscess 2. Small L4-5 disc bulge with mild right foraminal stenosis 3. Stable moderate L5-S1 disc space narrowing and disc bulge resulting in moderate right and severe left foraminal stenosis 4. Results discussed with Dr. Stevenson
--- NOTE | 2017-01-16 14:51 | ED ORDER SUMMARY ---
..... Patient: MATTI GLEZ OrderSheet [facility] VisitID: [id number] [address] [place] [address] 36y, F Registration Date/Time: 01/16/2017 ORDER SHEET Weight: 146.5 kg (stated) Allergies: Adhesives on tapes, Compazine, Metformin, morphine GENERAL ORDERS: MRI Lumbar Spine wo Cont (Not Applicable) Urgent (10:59 01/16/2017 Sean GRAHAM) (Ack 11:02 Oswald) (Cancelled: Other12:55 Sean GRAHAM) CBC w Diff Urgent (10:01/16/2017 Sean GRAHAM) (Ack 11:02 Oswald) (11:40 SRoberts R.N.) CMP Urgent (10:01/16/2017 Sean GRAHAM) (Ack 11:02 Oswald) (11:40 SRoberts R.N.) UA-Culture if indicated Urgent (10:01/16/2017 Sean GRAHAM) (Ack 11:02 Oswald) (11:40 SRoberts R.N.) MRI Lumbar Spine w/wo Cont (Not Applicable) Urgent (12:55 01/16/2017 Sean GRAHAM) (Ack 12:57 Oswald) - (CT Lumbar spine with contrast re: diskitis, worsening back pain) (13:16 01/16/2017 Sean GRAHAM) (Ack 13:28 Oswald) (15:06 JBoardley R.N.) CRP Urgent (13:17 01/16/2017 Sean GRAHAM) (Ack 13:28 Oswald) (15:06 JBoardley R.N.) MEDICATION ORDERS: Phenergan IV 25 mg (HIGH ALERT MEDICATION, NOW) (10:19 01/16/2017 Sean GRAHAM) (Ack 10:22 SRoberts R.N.) (10:46 SRoberts R.N.) IV FLUIDS: Dilaudid IV 1 mg (HIGH ALERT MEDICATION, NOW) (10:01/16/2017 Sean GRAHAM) (Ack 10:22 SRoberts R.N.) (10:48 SRoberts R.N.) Toradol IV 30 mg (NOW) (10:20 01/16/2017 Sean GRAHAM) (Ack 10:22 SRoberts R.N.) (10:47 SRoberts R.N.) IV NS : initial bolus 1000 mL (1000 mL/hr), then none - (NOW) (10:58 01/16/2017 Sean GRAHAM) (11:40 SRoberts R.N.) Dilaudid IV 2 mg (HIGH ALERT MEDICATION, NOW) (12:24 01/16/2017 Sean GRAHAM) (Ack 12:36 SRoberts R.N.) (12:49 SRoberts R.N.) Zofran IV 8 mg (NOW) (12:24 01/16/2017 Sean GRAHAM) (Ack 12:36 SRoberts R.N.) (12:49 SRoberts R.N.) Ativan IV 2 mg (HIGH ALERT MEDICATION, NOW) (12:51 01/16/2017 Sean GRAHAM) (Ack 13:02 LORENoarcarly R.N.) ORDER SHEET NOTES: [Electronically signed by Murtaza Song R.N. (15:09 01/16/2017)] [Electronically signed by Enedina Stevenson MD (18:37 01/25/2017)] [Electronically locked/signed by Murtaza Song R.N. (15:01/16/2017)]
--- NOTE | 2017-01-16 14:51 | ED CLINICAL REPORT ---
Clinical Report - Physicians/[facility] [address] [place] [address] 01/16/2017 9:54 Patient: MATTI GLEZ Time Seen: 10:19. Arrived- By private vehicle. Historian- patient. HISTORY OF PRESENT ILLNESS Chief Complaint: BACK PAIN. Onset- about 2 months ago and it is still present. Modifying factors- worsened by standing. Not relieved by anything. It is described as being moderate in degree and in the area of the lower lumbar spine. The quality is noted to be "pain". Bladder dysfunction (patient states she has had 2 episodes of urinary incontinence, while at [facility]. She states they did an ultrasound of her bladder in the bladder catheter in and she had over a liter of urine in her bladder the first time she states the second time she had incontinence that they found about the same amount of urine in her bladder then also. She states that these 2 episodes happen last week and she has had no further episodes of retention or incontinence; however she has just been going to the toilet every hour regardless of whether she feels as though she needs to urinate, and has been trying to let whatever is in her bladder come out.). No bowel dysfunction or motor loss. Sensory loss (Patient states she has been numb and tingly in her bilateral lower legs and a little bit in her perineum.). Additional history - Patient has been undergoing antibiotic treatment with daptomycin and cephalexin she states for the last nearly 2 months. She states that in the beginning, she has low back pain generalized weakness and chills, and she feels as though the symptoms are recurring. She last had an MRI 2 weeks ago through the [facility] system, and was told that her nerves were still inflamed at the infection seemed to be improving. Patient states that she has been on oral Dilaudid at home, which did seem to help with the pain, but that they switch to oxycodone, which does not help. She states every now she's not taking anything for the pain, because when she had was not working. She states that she has also been nauseated over the last week, and that only Phenergan. Patient states she's been followed for this infection by an infectious disease specialist, as well as her primary care physician, Dr. Domínguez. However, she states that Dr. Domínguez is not available for 2 months, so she has not been able to get in to see her. Patient states she is mainly frustrated because she is in a lot of pain and nausea, and she feels like her symptoms are not getting better. Patient does note that she has actually been getting up to walk quite a bit with her walker, but that her hips have been sore, and that sometimes her legs want to "give out". Patient states she was doing physical therapy for a while but quit 2 weeks ago because she did not feel is helping. Patient denies an injury. No other injury. Similar symptoms previously: Recent medical care: The patient was seen recently at another facility. REVIEW OF SYSTEMS No fever, eye irritation, urinary frequency, hematuria or skin rash. No headache, sore throat, cough, difficulty breathing or chest pain. No abdominal pain, diarrhea, black stools or bloody stools. The patient has had chills, difficulty with urination (patient has had urinary retention with overflow incontinence),, nausea and vomiting. All systems otherwise negative, except as recorded above. PAST HISTORY Problems: Chronic Venous Insufficiency. Irritable Bowel Syndrome. Hemiplegic migraines. Enlarged Liver. PTSD. Peptic Ulcer Disease. Diabetes Mellitus. Obesity. Gastroesophageal Reflux Disease. Depression. Immunizations. Tetanus Status. LNMP - Last Normal Menstrual Period. Additional Surgeries: Appendectomy. Cholecystectomy. . Medications: Phenergan (Promethazine) Oral. Zofran ODT Oral. Reglan Oral. HumaLOG Subcutaneous. Ambien Oral. Dicyclomine HCl Oral 10 mg, 2x a day. FLUoxetine HCl Oral 100mg, 2x a day. Glimepiride Oral (Tablet 4 mg) 1 tablet, x2 daily. HydrOXYzine HCl Oral 25 mg, 4x a day. Lantus Subcutaneous 55 Units, 2x a day (unsure of dose). Lasix Oral. Omeprazole Oral 20 mg, daily. TiZANidine HCl Oral (Tablet 2 mg) 2 tablets, Q8H. ValACYclovir HCl Oral (Tablet 500 mg) 1 tablet, x2 daily. Albuterol Sulfate Inhalation. Atorvastatin Calcium Oral 80 mg, daily. Clindamycin HCl Oral 150 mgx2 , 4x a day. Allergies: Adhesives on tapes. Compazine. (migraines) Metformin. morphine. Possible Mild. SOCIAL HISTORY Never smoker. No alcohol use or drug use. ADDITIONAL NOTES The nursing notes have been reviewed. PHYSICAL EXAM Vital Signs: Have been reviewed. Appearance: Alert. No acute distress. HEENT: Normal external inspection. Eyes: Pupils equal, round and reactive to light. Neck: Normal inspection. Neck nontender. Painless ROM. CVS: Heart sounds normal. Pulses normal. Respiratory: No respiratory distress. Breath sounds normal. Abdomen: No visible injury. Soft and nontender. Obese. Back: Mild vertebral point tenderness over the mid lumbar spine. Limited ROM in the back. No CVA tenderness. Skin: Skin warm and dry. Normal skin color. No rash. Normal skin turgor. Extremities: Extremities nontender. Neuro: Oriented X 3. Mood/affect normal. No motor deficit. LABS, X-RAYS, AND EKG CT L-Spine: No acute findings. Soft tissue normal. No fracture or subluxation. No bony lesion. L-Spine CT performed with contrast. The study was independently viewed by me, interpreted by the radiologist and contemporaneously by me and discussed with the radiologist. Pulse Oximetry: 01/16/2017 10:02 O2 saturation: 97%. (FIO2 - room air). Interpretation: normal. PROGRESS AND PROCEDURES Course of Care: Patient was given IV fluids, Toradol, Phenergan, and Dilaudid for symptomatic management. She was worked up for her symptoms. She was treated with Phenergan, Dilaudid, Toradol, Zofran, and Ativan, for symptomatic relief. Her labs, including CRP, were unremarkable. She was not able to get an MRI, though she had just had one done recently, which showed improvement. I did get a CT on the pt, instead, and this showed no sign of discitis. Pt's sx were not concerning for spinal cord compromise at this time, given that pt had had transient incontinence a week ago, and had intact strength and motor skills in her lower extremities. Additionally, she had not had a fever. Pt is advised to continue her abx, and to follow up with her specialist, as she has been doing. Patient counseled in person regarding the patient's stable condition, test results, diagnosis and need for follow-up. Concerns were addressed. Old medical records reviewed. Disposition: Discharged. Condition: stable and improved. CLINICAL IMPRESSION Chronic nontraumatic lumbar back pain. (Lumbar diskitis, improving). INSTRUCTIONS (Your labs look good. You have a normal white blood cell count, which is a good sign in terms of infection. Your urinalysis is normal. Your CT scan shows that you have not had a worsening of your infection in terms of developing an abscess (pus pocket). Your bones look good in the spine. At this point in time you most likely have residual inflammation from your infection, and this is most likely causing the pain and numbness you are still having. You should follow up with your infectious disease doctor to follow the progress of your infection, but at this point in time, there is no emergent condition and your infection is improving as we would expect. If you would like to follow up with a neurosurgeon, you may do so as recommended below. You should also see your primary doctor or infectious disease specialist for further pain control needs.). Warnings: SEDATIVE MEDICATION: You were given sedative medication during your visit. Do not drive or operate dangerous machinery for 6 hours. GENERAL WARNINGS: Return or contact your physician immediately if your condition worsens or changes unexpectedly, if not improving as expected, or if other problems arise. Your Current Medications: CONTINUE TAKING THE FOLLOWING MEDICATIONS: Albuterol Sulfate Inhalation. Ambien Oral. Atorvastatin Calcium Oral : 80 mg daily. Clindamycin HCl Oral : 150 mgx2 4x a day. Dicyclomine HCl Oral : 10 mg 2x a day. FLUoxetine HCl Oral : 100mg 2x a day. Glimepiride Oral : Tablet 4 mg, 1 tablet x2 daily. HumaLOG Subcutaneous. HydrOXYzine HCl Oral : 25 mg 4x a day. Lantus Subcutaneous : 55 Units 2x a day, unsure of dose. Lasix Oral. Omeprazole Oral : 20 mg daily. Phenergan (Promethazine) Oral. Reglan Oral. TiZANidine HCl Oral : Tablet 2 mg, 2 tablets Q8H. ValACYclovir HCl Oral : Tablet 500 mg, 1 tablet x2 daily. Zofran ODT Oral. Prescription Medications: Hydromorphone 2 mg: take 1 tablet orally every 6 hours as needed for pain. Dispense ten (10). No refill. Follow-up: Follow up with a specialist Infectious disease. Call for the next available appointment. Follow up with a specialist Dr. Espinoza Ho/neurosurgery: . Call for the next available appointment. Reason for referral: Discuss options to treat diskitis-associated urinary retention and persistent sensory deficit. Understanding of the discharge instructions verbalized by patient. (Electronically signed by Enedina Stevenson MD 01/25/2017 18:37) Addenda MATTI Berman VisitID: [id number] Date: 01/16/2017 01/16/2017 15:14 Ativan (LORazepam) IVP 2 mg given over 1 second(s) via site #1. Allergies verified, confirmed 5 rights and sedative warning given to the patient. IV patency established. IV site checked: no pain, redness, or swelling. IV flushed thoroughly pre- and post-medication administration. IVP given by RN. (Electronically signed by Jade Chang R.N. - 01/16/2017 15:14) 01/16/2017 15:15 14:15 01/16/2017 Site #[address] Flushed with 10 mL saline; flushes easily. (Electronically signed by Jade Chang R.N. - 01/16/2017 15:15)
--- NOTE | 2017-01-16 14:51 | ED ORDER SUMMARY ---
..... Patient: MATTI GLEZ OrderSheet [facility] VisitID: [id number] [address] [place] [address] 36y, F Registration Date/Time: 01/16/2017 ORDER SHEET Weight: 146.5 kg (stated) Allergies: Adhesives on tapes, Compazine, Metformin, morphine GENERAL ORDERS: MRI Lumbar Spine wo Cont (Not Applicable) Urgent (10:59 01/16/2017 Sean GRAHAM) (Ack 11:02 Oswald) (Cancelled: Other12:55 Sean GRAHAM) CBC w Diff Urgent (10:01/16/2017 Sean GRAHAM) (Ack 11:02 Oswald) (11:40 SRoberts R.N.) CMP Urgent (10:01/16/2017 Sean GRAHAM) (Ack 11:02 Oswald) (11:40 SRoberts R.N.) UA-Culture if indicated Urgent (10:01/16/2017 Sean GRAHAM) (Ack 11:02 Oswald) (11:40 SRoberts R.N.) MRI Lumbar Spine w/wo Cont (Not Applicable) Urgent (12:55 01/16/2017 Sean GRAHAM) (Ack 12:57 Oswald) - (CT Lumbar spine with contrast re: diskitis, worsening back pain) (13:16 01/16/2017 Sean GRAHAM) (Ack 13:28 Oswald) (15:06 JBoardley R.N.) CRP Urgent (13:17 01/16/2017 Sean GRAHAM) (Ack 13:28 Oswald) (15:06 JBoardley R.N.) MEDICATION ORDERS: Phenergan IV 25 mg (HIGH ALERT MEDICATION, NOW) (10:19 01/16/2017 Sean GRAHAM) (Ack 10:22 SRoberts R.N.) (10:46 SRoberts R.N.) IV FLUIDS: Dilaudid IV 1 mg (HIGH ALERT MEDICATION, NOW) (10:01/16/2017 Sean GRAHAM) (Ack 10:22 SRoberts R.N.) (10:48 SRoberts R.N.) Toradol IV 30 mg (NOW) (10:20 01/16/2017 Sean GRAHAM) (Ack 10:22 SRoberts R.N.) (10:47 SRoberts R.N.) IV NS : initial bolus 1000 mL (1000 mL/hr), then none - (NOW) (10:58 01/16/2017 Sean GRAHAM) (11:40 SRoberts R.N.) Dilaudid IV 2 mg (HIGH ALERT MEDICATION, NOW) (12:24 01/16/2017 Sean GRAHAM) (Ack 12:36 SRoberts R.N.) (12:49 SRoberts R.N.) Zofran IV 8 mg (NOW) (12:24 01/16/2017 Sean GRAHAM) (Ack 12:36 SRoberts R.N.) (12:49 SRoberts R.N.) Ativan IV 2 mg (HIGH ALERT MEDICATION, NOW) (12:51 01/16/2017 Sean GRAHAM) (Ack 13:02 LORENoarcarly R.N.) ORDER SHEET NOTES: [Electronically signed by Murtaza Song R.N. (15:09 01/16/2017)] [Electronically signed by Enedina Stevenson MD (18:37 01/25/2017)] [Electronically locked/signed by Murtaza Song R.N. (15:01/16/2017)]
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
--- NOTE | 2017-01-25 18:37 | ED MED RECONCILIATION SUMMARY ---
Patient: MATTI GLEZ Medication Reconciliation Report [facility] VisitID: [id number] [address] [place] [address] 36y, F Registration Date/Time: 01/16/2017 Weight: 146.5 kg Height/Length: 66 in. BMI: 52.2 ALLERGIES: Adhesives on tapes, Compazine, Metformin, morphine The patient's Home Medications are listed below: CONTINUE TAKING THE FOLLOWING MEDICATIONS: Albuterol Sulfate Inhalation Ambien Oral Atorvastatin Calcium Oral 80 mg, daily Clindamycin HCl Oral 150 mgx2 , 4x a day Dicyclomine HCl Oral 10 mg, 2x a day FLUoxetine HCl Oral 100mg, 2x a day Glimepiride Oral (4 mg) 1 tablet, x2 daily HumaLOG Subcutaneous HydrOXYzine HCl Oral 25 mg, 4x a day Lantus Subcutaneous 55 Units, 2x a day, unsure of dose Lasix Oral Omeprazole Oral 20 mg, daily Phenergan (Promethazine) Oral Reglan Oral TiZANidine HCl Oral (2 mg) 2 tablets, Q8H ValACYclovir HCl Oral (500 mg) 1 tablet, x2 daily Zofran ODT Oral The source(s) of the original Home Medication information: patient The following Medications were given to the patient in the Emergency Department: PHENERGAN [IVP] IVP 25 mg, administered: 01/16/2017 10:36:00 AM Toradol [IVP] IVP 30 mg, administered: 01/16/2017 10:38:00 AM Dilaudid [IVP] IVP 1 mg, administered: 01/16/2017 10:39:00 AM IV NS IV Fluids bolus 0, then 1000 mL/hr, administered: 01/16/2017 11:40:00 AM Zofran [IVP] IVP 8 mg, administered: 01/16/2017 12:44:00 PM Dilaudid [IVP] IVP 2 mg, administered: 01/16/2017 12:47:00 PM Ativan [IVP] IVP 2 mg, administered: 01/16/2017 1:13:00 PM The following Medications were prescribed to the patient: Hydromorphone 2 mg: take 1 tablet orally every 6 hours as needed for pain. Dispense ten (10). No refill. -- Enedina Stevenson MD
--- NOTE | 2017-01-25 18:37 | ED MAR SUMMARY ---
..... Medication Administration Record [facility] [address] [place] [place] [address] Patient: MATTI GLEZ Visit ID: [id number] 36y, F Weight: 146.5 kg Height/Length: 66 in BMI: 52.2 ALLERGIES: Adhesives on tapes, Compazine, Metformin, morphine Given 10:36 01/16/2017 Jade Chang R.N. Medication Administered: PHENERGAN [IVP] (PROMETHAZINE HCL), Dose: 25 mg IVP, Site: #1 left PICC. Medication Ordered: Phenergan IV 25 mg (HIGH ALERT MEDICATION, NOW). Given 10:38 01/16/2017 Jade Chang R.N. Medication Administered: TORADOL [IVP], Dose: 30 mg IVP over 1 minute(s), Site: #1 left PICC. Medication Ordered: Toradol IV 30 mg (NOW). Given 10:39 01/16/2017 Jade Chang R.N. Medication Administered: DILAUDID [IVP] (HYDROMORPHONE HCL PF), Dose: 1 mg IVP over 1 minute(s), Site: #1 left PICC. Medication Ordered: Dilaudid IV 1 mg (HIGH ALERT MEDICATION, NOW). Start 11:40 01/16/2017 Jade Chang R.N. Medication Administered: IV NS (SALINE), Dose: IV Fluids over 1 hour(s), Rate: 1000 mL/hr, Dispensed: 1000 mL bag, Site: #1 left PICC. Medication Ordered: IV NS : initial bolus 1000 mL (1000 mL/hr), then none - (NOW). Given 12:44 01/16/2017 Jade Chang R.N. Medication Administered: ZOFRAN [IVP] (ONDANSETRON HCL), Dose: 8 mg IVP, Site: #1 left PICC. Medication Ordered: Zofran IV 8 mg (NOW). Given 12:47 01/16/2017 Jade Chang R.N. Medication Administered: DILAUDID [IVP] (HYDROMORPHONE HCL PF), Dose: 2 mg IVP over 1 minute(s), Site: #1 left PICC. Medication Ordered: Dilaudid IV 2 mg (HIGH ALERT MEDICATION, NOW). Given 13:13 01/16/2017 Jade Chang R.N. Medication Administered: ATIVAN [IVP] (LORAZEPAM), Dose: 2 mg IVP over 1 second(s), Site: #1 left PICC. Medication Ordered: Ativan IV 2 mg (HIGH ALERT MEDICATION, NOW).
--- NOTE | 2017-01-25 18:37 | ED MED RECONCILIATION SUMMARY ---
Patient: MATTI GLEZ Medication Reconciliation Report [facility] VisitID: [id number] [address] [place] [address] 36y, F Registration Date/Time: 01/16/2017 Weight: 146.5 kg Height/Length: 66 in. BMI: 52.2 ALLERGIES: Adhesives on tapes, Compazine, Metformin, morphine The patient's Home Medications are listed below: CONTINUE TAKING THE FOLLOWING MEDICATIONS: Albuterol Sulfate Inhalation Ambien Oral Atorvastatin Calcium Oral 80 mg, daily Clindamycin HCl Oral 150 mgx2 , 4x a day Dicyclomine HCl Oral 10 mg, 2x a day FLUoxetine HCl Oral 100mg, 2x a day Glimepiride Oral (4 mg) 1 tablet, x2 daily HumaLOG Subcutaneous HydrOXYzine HCl Oral 25 mg, 4x a day Lantus Subcutaneous 55 Units, 2x a day, unsure of dose Lasix Oral Omeprazole Oral 20 mg, daily Phenergan (Promethazine) Oral Reglan Oral TiZANidine HCl Oral (2 mg) 2 tablets, Q8H ValACYclovir HCl Oral (500 mg) 1 tablet, x2 daily Zofran ODT Oral The source(s) of the original Home Medication information: patient The following Medications were given to the patient in the Emergency Department: PHENERGAN [IVP] IVP 25 mg, administered: 01/16/2017 10:36:00 AM Toradol [IVP] IVP 30 mg, administered: 01/16/2017 10:38:00 AM Dilaudid [IVP] IVP 1 mg, administered: 01/16/2017 10:39:00 AM IV NS IV Fluids bolus 0, then 1000 mL/hr, administered: 01/16/2017 11:40:00 AM Zofran [IVP] IVP 8 mg, administered: 01/16/2017 12:44:00 PM Dilaudid [IVP] IVP 2 mg, administered: 01/16/2017 12:47:00 PM Ativan [IVP] IVP 2 mg, administered: 01/16/2017 1:13:00 PM The following Medications were prescribed to the patient: Hydromorphone 2 mg: take 1 tablet orally every 6 hours as needed for pain. Dispense ten (10). No refill. -- Enedina Stevenson MD
--- NOTE | 2017-01-25 18:37 | ED DISCHARGE INSTRUCTIONS ---
Patient: MATTI GLEZ General Instructions [facility] VisitID: [id number] [place] [address] 36y, F Registration Date/Time: 01/16/2017 Chronic nontraumatic lumbar back pain. (Lumbar diskitis, improving). INSTRUCTIONS (Your labs look good. You have a normal white blood cell count, which is a good sign in terms of infection. Your urinalysis is normal. Your CT scan shows that you have not had a worsening of your infection in terms of developing an abscess (pus pocket). Your bones look good in the spine. At this point in time you most likely have residual inflammation from your infection, and this is most likely causing the pain and numbness you are still having. You should follow up with your infectious disease doctor to follow the progress of your infection, but at this point in time, there is no emergent condition and your infection is improving as we would expect. If you would like to follow up with a neurosurgeon, you may do so as recommended below. You should also see your primary doctor or infectious disease specialist for further pain control needs.). Warnings: SEDATIVE MEDICATION: You were given sedative medication during your visit. Do not drive or operate dangerous machinery for 6 hours. GENERAL WARNINGS: Return or contact your physician immediately if your condition worsens or changes unexpectedly, if not improving as expected, or if other problems arise. Your Current Medications: CONTINUE TAKING THE FOLLOWING MEDICATIONS: Albuterol Sulfate Inhalation. Ambien Oral. Atorvastatin Calcium Oral : 80 mg daily. Clindamycin HCl Oral : 150 mgx2 4x a day. Dicyclomine HCl Oral : 10 mg 2x a day. FLUoxetine HCl Oral : 100mg 2x a day. Glimepiride Oral : Tablet 4 mg, 1 tablet x2 daily. HumaLOG Subcutaneous. HydrOXYzine HCl Oral : 25 mg 4x a day. Lantus Subcutaneous : 55 Units 2x a day, unsure of dose. Lasix Oral. Omeprazole Oral : 20 mg daily. Phenergan (Promethazine) Oral. Reglan Oral. TiZANidine HCl Oral : Tablet 2 mg, 2 tablets Q8H. ValACYclovir HCl Oral : Tablet 500 mg, 1 tablet x2 daily. Zofran ODT Oral. Prescription Medications: Hydromorphone 2 mg: take 1 tablet orally every 6 hours as needed for pain. Dispense ten (10). No refill. Follow-up: Follow up with a specialist Infectious disease. Call for the next available appointment. Follow up with a specialist Dr. Espinoza Ho/neurosurgery: . Call for the next available appointment. Reason for referral: Discuss options to treat diskitis-associated urinary retention and persistent sensory deficit. Understanding of the discharge instructions verbalized by patient. ADDITIONAL INFORMATION Back Pain [Acute Or Chronic] Back pain is usually caused by an injury to the muscles or ligaments of the spine. Sometimes the disks that separate each bone in the spine may bulge and cause pain by pressing on a nearby nerve. Back pain may also appear after a sudden twisting/bending force (such as in a car accident), after a simple awkward movement, or lifting something heavy with poor body positioning. In either case, muscle spasm is often present and adds to the pain. Acute back pain usually gets better in one to two weeks. Back pain related to disk disease, arthritis in the spinal joints or spinal stenosis (narrowing of the spinal canal) can become chronic and last for months or years. Unless you had a physical injury (for example, a car accident or fall) X-rays are usually not ordered for the initial evaluation of back pain. If pain continues and does not respond to medical treatment, x-rays and other tests may be performed at a later time. Home Care: You may need to stay in bed the first few days. But, as soon as possible, begin sitting or walking to avoid problems with prolonged bed rest (muscle weakness, worsening back stiffness and pain, blood clots in the legs). When in bed, try to find a position of comfort. A firm mattress is best. Try lying flat on your back with pillows under your knees. You can also try lying on your side with your knees bent up towards your chest and a pillow between your knees. Avoid prolonged sitting. This puts more stress on the lower back than standing or walking. During the first two days after injury, apply an ICE PACK to the painful area for 20 minutes every 2-4 hours. This will reduce swelling and pain. HEAT (hot shower, hot bath or heating pad) works well for muscle spasm. You can start with ice, then switch to heat after two days. Some patients feel best alternating ice and heat treatments. Use the one method that feels the best to you. You may use acetaminophen (Tylenol) or ibuprofen (Motrin, Advil) to control pain, unless another pain medicine was prescribed. [NOTE: If you have chronic liver or kidney disease or ever had a stomach ulcer or GI bleeding, talk with your doctor before using these medicines.] Be aware of safe lifting methods and do not lift anything over 15 pounds until all the pain is gone. Follow Up with your doctor or this facility if your symptoms do not start to improve after one week. Physical therapy may be needed. [NOTE: If X-rays were taken, they will be reviewed by a radiologist. You will be notified of any new findings that may affect your care.] Get Prompt Medical Attention if any of the following occur: Pain becomes worse or spreads to your legs Weakness or numbness in one or both legs Loss of bowel or bladder control Numbness in the groin or genital area You have been given the following additional information: Back Pain (Acute Or Chronic) (Electronically signed by Enedina Stevenson MD 01/25/2017 18:37)
--- NOTE | 2017-01-25 18:37 | ED MAR SUMMARY ---
..... Medication Administration Record [facility] [address] [place] [address] Patient: MATTI GLEZ Visit ID: [id number] 36y, F Weight: 146.5 kg Height/Length: 66 in BMI: 52.2 ALLERGIES: Adhesives on tapes, Compazine, Metformin, morphine Given 10:36 01/16/2017 Jade Chang R.N. Medication Administered: PHENERGAN [IVP] (PROMETHAZINE HCL), Dose: 25 mg IVP, Site: #1 left PICC. Medication Ordered: Phenergan IV 25 mg (HIGH ALERT MEDICATION, NOW). Given 10:38 01/16/2017 Jade Chang R.N. Medication Administered: TORADOL [IVP], Dose: 30 mg IVP over 1 minute(s), Site: #1 left PICC. Medication Ordered: Toradol IV 30 mg (NOW). Given 10:39 01/16/2017 Jade Chang R.N. Medication Administered: DILAUDID [IVP] (HYDROMORPHONE HCL PF), Dose: 1 mg IVP over 1 minute(s), Site: #1 left PICC. Medication Ordered: Dilaudid IV 1 mg (HIGH ALERT MEDICATION, NOW). Start 11:40 01/16/2017 Jade Chang R.N. Medication Administered: IV NS (SALINE), Dose: IV Fluids over 1 hour(s), Rate: 1000 mL/hr, Dispensed: 1000 mL bag, Site: #1 left PICC. Medication Ordered: IV NS : initial bolus 1000 mL (1000 mL/hr), then none - (NOW). Given 12:44 01/16/2017 Jade Chang R.N. Medication Administered: ZOFRAN [IVP] (ONDANSETRON HCL), Dose: 8 mg IVP, Site: #1 left PICC. Medication Ordered: Zofran IV 8 mg (NOW). Given 12:47 01/16/2017 Jade Chang R.N. Medication Administered: DILAUDID [IVP] (HYDROMORPHONE HCL PF), Dose: 2 mg IVP over 1 minute(s), Site: #1 left PICC. Medication Ordered: Dilaudid IV 2 mg (HIGH ALERT MEDICATION, NOW). Given 13:13 01/16/2017 Jade Chang R.N. Medication Administered: ATIVAN [IVP] (LORAZEPAM), Dose: 2 mg IVP over 1 second(s), Site: #1 left PICC. Medication Ordered: Ativan IV 2 mg (HIGH ALERT MEDICATION, NOW).
== END 2017-01-16 15:08 | disposition home or self-care (01) ==
LOC: ED SRH 09:54
DX: M54.5 Low back pain (principal); E11.9 Type 2 diabetes mellitus without complications; K21.9 Gastro-esophageal reflux disease without esophagitis; Z79.4 Long term (current) use of insulin; Z79.899 Other long term (current) drug therapy; Z79.84 Long term (current) use of oral hypoglycemic drugs; Z88.8 Allergy status to other drugs, medicaments and biological substances; Z88.5 Allergy status to narcotic agent
CPT/HCPCS: 90004; 90074; 90100; 91585; 95059